=== PATIENT | female | born 1955 | race Caucasian/White ===

== ENCOUNTER 2016-07-31 19:27 | Inpatient (IN) | payer OTHER ==
[~2016-07-31] VITALS: Ht 167.6 cm; Wt 110.3 kg
--- NOTE | 2016-07-31 21:13 | ED NURSING NOTES ---
Clinical Report - Nurses [facility] [address] [place] [address] 07/31/2016 19:30 Patient: MORENA CORDERO TRIAGE Triage time 5. Acuity: LEVEL 3. Chief Complaint: ABDOMINAL PAIN and (pt had gastroenteritis since last (was seen at clinic and given omeprasol) , has off work note til next Wednesday. In c/o rt flank pain). 19:45. --20:12 Sofy Womack R.N. 19:45 07/31/16. BP: 133/62. HR: 95. RR: 18. O2 saturation: 96% on room air. Temp: 99 F. --20:12 Sofy Womack R.N. Weight: 107 kg stated. Height/Length: 66 inches Per Patient. BMI: 38.1. --20:08 Sofy Womack R.N. Medications Omeprazole Oral 20 mg, daily. Vicodin Oral 5 mg, daily. --19:57 Sofy Womack R.N. MetFORMIN HCl Oral 500mg ER -- 2 tabs at HS. --20:10 Sofy Womack R.N. Call [facility] . --20:11 Sofy Womack R.N. Simvastatin Oral 20 mg, daily. --20:11 Sofy Womack R.N. Allergies Shellfish-derived Products. --20:10 Sofy Womack R.N. History Arrived by private vehicle. Historian: patient. Accompanied by friend. Primary physician (justin). This started today. She has had abdominal pain. No nausea, vomiting or diarrhea. PAST MEDICAL HX: Diabetes mellitus. The patient is post-menopausal. SURGERY HX: . SOCIAL HX: Never smoker. Occasional alcohol use. No drug use. --20:12 Sofy Womack R.N. Interventions ID band on patient. To treatment room. --20:12 Sofy Womack R.N. PHYSICAL ASSESSMENT 19:48. Ambulatory to room. Patient gowned. GENERAL / NEURO / PSYCH: Alert. Oriented X 4. Appears in no acute distress. RESPIRATORY: Respirations not labored. CVS: Capillary refill less than 2 seconds. GI / : No nausea noted. No diarrhea. No blood in the stool. SKIN: Skin is warm and dry. --20:00 Sofy Womack R.N. NURSING PROGRESS NOTES 19:48 07/31/16. Patient gowned. Head of bed elevated. Reassurance given. Patient identifiers checked. Call light placed in reach. Side rails up. Bed placed in lowest position. --19:48 Sofy Womack R.N. 19:50. Patient ID band checked for patient name and birthdate: patient confirmed. Clean catch urine collected with return of yellow-colored cloudy urine; sample sent to lab for urinalysis and culture. Specimen labeled in the presence of the patient. --19:59 Sofy Womack R.N. 20:26 07/31/2016 Site #1 started via IV in the right hand with an 20g angiocath; two attempts. Blood drawn: rainbow set. Labeled in the presence of the patient and sent to the lab. Saline lock flushed with 10 mL saline. --20:26 Daylin Ramirez R.N. 20:35. ( Pt declined nausea meds and IV fluids, JOSELYN notified.). --20:46 Sofy Womack R.N. 20:45. ( US at bedside to do exam). --20:47 Sofy Womack R.N. 22:00. ( NAIMAD in talking with pt and daughter at length about need for admission. Pt initially wanted to go home, but eventually agreed to be admitted. NAIMAD asked for admit to be expedited before pt changed her mind again). --22:11 Sofy Womack R.N. 22:10. ( attempted to call report, Fco will call me back when he is available). --22:11 Sofy Womack R.N. 22:35. ( called and gave report to Fco. JOSELYN has also ordered EKG and CXR prior to admission). --22:38 Sofy Womack R.N. 22:49. EKG time: (153). EKG was ordered, performed by a tech and shown to the ED physician. done by KRISTIAN Garnett. --22:56 Sofy Womack R.N. 22:57 07/31/16. Portable chest x-ray ordered, performed and shown to the ED physician. --22:57 Sofy Womack R.N. 23:05 07/31/2016 Site #[address] upon admission; patent. Converted to saline lock. --23:21 Sofy Womack R.N. 23:05 07/31/2016 IV Saline Lock Drip IV Continued: upon admission at the rate of 0 mL/hr (sent bag to floor that I had checked out that pt had refused, so they can start). --23:19 Sofy Womack R.N. DISPOSITION / DISCHARGE Condition at departure: unchanged and stable. ( pt states she is afraid to be here.). Admitted to Acute Care. Transported via stretcher by [facility]. Report was given. (Fco RN on 2nd floor). RADHA COMA SCORE: [place] Coma Scale: 15- eyes open spontaneously (4); best verbal response- oriented x 4 (5); best motor response- obeys commands (6). --22:44 Sofy Womack R.N. 22:30 07/31/16. BP: 140/70. HR: 72. RR: 18. O2 saturation: 95% on room air. Temp: deferred. Pain level now: 0/10. --22:44 Sofy Womack R.N. Departure time: 2304. --23:16 Sofy Womack R.N. Locked/Released at 07/31/2016 23:22 by Sofy Womack R.N.
--- NOTE | 2016-07-31 21:13 | ED ORDER SUMMARY ---
..... Patient: MORENA CORDERO OrderSheet [facility] VisitID: [id number] [place] [address] 60y, F Registration Date/Time: 07/31/2016 ORDER SHEET Weight: 107.0 kg (stated) Allergies: Shellfish-derived Products GENERAL ORDERS: UA-Culture if indicated Urgent (19:55 07/31/2016 PHutchinson DO) (Ack 19:58 IJurca ER Tech1) (20:02 DDean R.N.) US Abdomen Limited (No) Urgent (20:02 07/31/2016 PHutchinson DO) (Ack 20:04 [facility]urca ER Tech1) ([facility] CBC w Diff Urgent (20:03 07/31/2016 PHutchinson DO) (20:03 PHutchinson DO) (Cancelled: Other20:03 PHutchinson DO) (Ack 20:04 IJurca ER Tech1) CMP Urgent (20:03 07/31/2016 PHutchinson DO) (20:03 PHutchinson DO) (Cancelled: Other20:03 PHutchinson DO) (Ack 20:04 IJurca ER Tech1) Amylase Urgent (20:03 07/31/2016 PHutchinson DO) (Ack 20:04 IJurca ER Tech1) (20:38 DDean R.N.) Lipase Urgent (20:03 07/31/2016 PHutchinson DO) (Ack 20:04 IJurca ER Tech1) (20:38 DDean R.N.) PT with INR Urgent (20:03 07/31/2016 PHutchinson DO) (Ack 20:04 IJurca ER Tech1) (20:38 DDean R.N.) NPO (20:03 07/31/2016 PHutchinson DO) (Ack 20:04 IJurca ER Tech1) (20:38 DDean R.N.) Cardiac Panel Stat (20:06 07/31/2016 PHutchinson DO) (Ack 20:08 IJurca ER Tech1) (20:38 DDean R.N.) BNP Urgent (20:06 07/31/2016 [facility]) (Ack 20:08 IJurca ER Tech1) (20:38 DDean R.N.) Chest 1V Urgent (22:31 07/31/2016 [facility]) (Ack 22:33 IJurca ER Tech1) (22:57 DDean R.N.) EKG - ER Stat (22:32 07/31/2016 [facility]) (Ack 22:33 IJurca ER Tech1) (22:57 DDean R.N.) (22:57 CHategekimana) MEDICATION ORDERS: IV FLUIDS: IV NS : initial bolus 500 mL (1000 mL/hr), then 500 mL/hr for X2 (NOW) (20:02 07/31/2016 [facility]) (Ack 20:08 DDean R.N.) (Cancelled: Patient [id number] DDean R.N.) Zofran IV 4 mg (NOW) (20:02 07/31/2016 [facility]) (Ack 20:08 DDean R.N.) (Cancelled: Patient Kfcevzw43:50 DDean R.N.) IV Saline Lock (23:16 07/31/2016 DDean R.N. per protocol) (23:17 DDean R.N.) ORDER SHEET NOTES: [Electronically signed by Jose Luis Juárez DO (22:57 07/31/2016)] [Electronically signed by Sofy Womack R.N. (23:22 07/31/2016)] [Electronically locked/signed by Sofy Womack R.N. (23:22 07/31/2016)]
--- NOTE | 2016-07-31 21:13 | ED ORDER SUMMARY ---
..... Patient: MOERNA CORDERO OrderSheet [facility] VisitID: [id number] [place] [address] 60y, F Registration Date/Time: 07/31/2016 ORDER SHEET Weight: 107.0 kg (stated) Allergies: Shellfish-derived Products GENERAL ORDERS: UA-Culture if indicated Urgent (19:55 07/31/2016 PHutchinson DO) (Ack 19:58 IJurca ER Tech1) (20:02 DDean R.N.) US Abdomen Limited (No) Urgent (20:02 07/31/2016 PHutchinson DO) (Ack 20:04 IJurca ER Tech1) (21:14 [facility] CBC w Diff Urgent (20:03 07/31/2016 PHutchinson DO) (20:03 PHutchinson DO) (Cancelled: Other20:03 PHutchinson DO) (Ack 20:04 IJurca ER Tech1) CMP Urgent (20:03 07/31/2016 PHutchinson DO) (20:03 PHutchinson DO) (Cancelled: Other20:03 PHutchinson DO) (Ack 20:04 [facility] ER Tech1) Amylase Urgent (20:03 07/31/2016 PHutchinson DO) (Ack 20:04 IJurca ER Tech1) (20:38 DDean R.N.) Lipase Urgent (20:03 07/31/2016 PHutchinson DO) (Ack 20:04 IJurca ER Tech1) (20:38 DDean R.N.) PT with INR Urgent (20:03 07/31/2016 PHutchinson DO) (Ack 20:04 IJurca ER Tech1) (20:38 DDean R.N.) NPO (20:03 07/31/2016 PHutchinson DO) (Ack 20:04 IJurca ER Tech1) (20:38 DDean R.N.) Cardiac Panel Stat (20:06 07/31/2016 PHutchinson DO) (Ack 20:08 IJurca ER Tech1) (20:38 DDean R.N.) BNP Urgent (20:06 07/31/2016 [facility]) (Ack 20:08 IJurca ER Tech1) (20:38 DDean R.N.) Chest 1V Urgent (22:31 07/31/2016 [facility]) (Ack 22:33 IJurca ER Tech1) (22:57 DDean R.N.) EKG - ER Stat (22:32 07/31/2016 [facility]) (Ack 22:33 IJurca ER Tech1) (22:57 DDean R.N.) (22:57 CHategekimana) MEDICATION ORDERS: IV FLUIDS: IV NS : initial bolus 500 mL (1000 mL/hr), then 500 mL/hr for X2 (NOW) (20:02 07/31/2016 [facility]) (Ack 20:08 DDean R.N.) (Cancelled: Patient [id number]:50 DDean R.N.) Zofran IV 4 mg (NOW) (20:02 07/31/2016 [facility]) (Ack 20:08 DDean R.N.) (Cancelled: Patient [id number]:50 DDean R.N.) IV Saline Lock (23:16 07/31/2016 DDean R.N. per protocol) (23:17 DDean R.N.) ORDER SHEET NOTES: [Electronically signed by Jose Luis Juárez DO (22:57 07/31/2016)] [Electronically signed by Sofy Womack R.N. (23:22 07/31/2016)] [Electronically locked/signed by Sofy Womack R.N. (23:22 07/31/2016)]
--- NOTE | 2016-07-31 21:13 | ED NURSING NOTES ---
Clinical Report - Nurses [facility] [address] [place] [address] 07/31/2016 19:30 Patient: MORENA CORDERO TRIAGE Triage time 5. Acuity: LEVEL 3. Chief Complaint: ABDOMINAL PAIN and (pt had gastroenteritis since last (was seen at clinic and given omeprasol) , has off work note til next Wednesday. In c/o rt flank pain). 19:45. --20:12 Sofy Womack R.N. 19:45 07/31/16. BP: 133/62. HR: 95. RR: 18. O2 saturation: 96% on room air. Temp: 99 F. --20:12 Sofy Womack R.N. Weight: 107 kg stated. Height/Length: 66 inches Per Patient. BMI: 38.1. --20:08 Sofy Womack R.N. Medications Omeprazole Oral 20 mg, daily. Vicodin Oral 5 mg, daily. --19:57 Sofy Womack R.N. MetFORMIN HCl Oral 500mg ER -- 2 tabs at HS. --20:10 Sofy Womack R.N. Call [facility] . --20:11 Sofy Womack R.N. Simvastatin Oral 20 mg, daily. --20:11 Sofy Womack R.N. Allergies Shellfish-derived Products. --20:10 Sofy Womack R.N. History Arrived by private vehicle. Historian: patient. Accompanied by friend. Primary physician (justin). This started today. She has had abdominal pain. No nausea, vomiting or diarrhea. PAST MEDICAL HX: Diabetes mellitus. The patient is post-menopausal. SURGERY HX: . SOCIAL HX: Never smoker. Occasional alcohol use. No drug use. --20:12 Sofy Womack R.N. Interventions ID band on patient. To treatment room. --20:12 Sofy Womack R.N. PHYSICAL ASSESSMENT 19:48. Ambulatory to room. Patient gowned. GENERAL / NEURO / PSYCH: Alert. Oriented X 4. Appears in no acute distress. RESPIRATORY: Respirations not labored. CVS: Capillary refill less than 2 seconds. GI / : No nausea noted. No diarrhea. No blood in the stool. SKIN: Skin is warm and dry. --20:00 Sofy Womack R.N. NURSING PROGRESS NOTES 19:48 07/31/16. Patient gowned. Head of bed elevated. Reassurance given. Patient identifiers checked. Call light placed in reach. Side rails up. Bed placed in lowest position. --19:48 Sofy Womack R.N. 19:50. Patient ID band checked for patient name and birthdate: patient confirmed. Clean catch urine collected with return of yellow-colored cloudy urine; sample sent to lab for urinalysis and culture. Specimen labeled in the presence of the patient. --19:59 Sofy Womack R.N. 20:26 07/31/2016 Site #1 started via IV in the right hand with an 20g angiocath; two attempts. Blood drawn: rainbow set. Labeled in the presence of the patient and sent to the lab. Saline lock flushed with 10 mL saline. --20:26 Daylin Ramirez R.N. 20:35. ( Pt declined nausea meds and IV fluids, JOSELYN notified.). --20:46 Sofy Womack R.N. 20:45. ( US at bedside to do exam). --20:47 Sofy Womack R.N. 22:00. ( NAIMAD in talking with pt and daughter at length about need for admission. Pt initially wanted to go home, but eventually agreed to be admitted. NAIMAD asked for admit to be expedited before pt changed her mind again). --22:11 Sofy Womack R.N. 22:10. ( attempted to call report, Fco will call me back when he is available). --22:11 Sofy Womack R.N. 22:35. ( called and gave report to Fco. JOSELYN has also ordered EKG and CXR prior to admission). --22:38 Sofy Womack R.N. 22:49. EKG time: (424). EKG was ordered, performed by a tech and shown to the ED physician. done by KRISTIAN Garnett. --22:56 Sofy Womack R.N. 22:57 07/31/16. Portable chest x-ray ordered, performed and shown to the ED physician. --22:57 Sofy Womack R.N. 23:05 07/31/2016 Site #[address] upon admission; patent. Converted to saline lock. --23:21 Sofy Womack R.N. 23:05 07/31/2016 IV Saline Lock Drip IV Continued: upon admission at the rate of 0 mL/hr (sent bag to floor that I had checked out that pt had refused, so they can start). --23:19 Sofy Womack R.N. DISPOSITION / DISCHARGE Condition at departure: unchanged and stable. ( pt states she is afraid to be here.). Admitted to Acute Care. Transported via stretcher by [employer]. Report was given. (Fco RN on 2nd floor). RADHA COMA SCORE: [place] Coma Scale: 15- eyes open spontaneously (4); best verbal response- oriented x 4 (5); best motor response- obeys commands (6). --22:44 Sofy Womack R.N. 22:30 07/31/16. BP: 140/70. HR: 72. RR: 18. O2 saturation: 95% on room air. Temp: deferred. Pain level now: 0/10. --22:44 Sofy Womack R.N. Departure time: 2304. --23:16 Sofy Womack R.N. Locked/Released at 07/31/2016 23:22 by Sofy Womack R.N.
--- NOTE | 2016-07-31 21:13 | ED CLINICAL REPORT ---
Clinical Report - Physicians/Mid Levels [facility] [address] [place] [address] 07/31/2016 19:30 Patient: MORENA CORDERO Time Seen: 19:55. Arrived- By private vehicle. Historian- patient. HISTORY OF PRESENT ILLNESS Chief Complaint: FLANK PAIN. At its maximum, severity described as moderate. When seen in the E.D., severity described as mild. Modifying factors- worsened by movement. Relieved by rest. It is described as "pain", sharp and stabbing. No radiation. It is described as located in the right flank and the right upper quadrant, right abdomen, right lower quadrant and epigastric area. This started several days ago, worse today and is still present. It was gradual in onset and has been waxing/waning. The patient has had nausea. She has had vomiting (several days ago). She has had diarrhea (several days ago). Similar symptoms previously: Recent medical care: The patient was seen recently at another facility in a clinic. Seen for similar symptoms. Evaluation/treatment: labs. Diagnosis: gastritis. REVIEW OF SYSTEMS The patient is post-menopausal. No constipation, black stools, hematemesis, difficulty with urination or pain with urination. No urinary frequency, bloody stools, fever, headache or sore throat. No chest pain, difficulty breathing, cough, joint pain or skin rash. Denies current . The patient has had back pain. All systems otherwise negative, except as recorded above. PAST HISTORY See nurses notes. PCP: Sandra. Diabetes mellitus. Hyperlipidemia. Gastroesophageal reflux. Surgeries: . Medications: Simvastatin Oral 20 mg, daily. Call rahel [facility] . MetFORMIN HCl Oral 500mg ER -- 2 tabs at HS. Omeprazole Oral 20 mg, daily. Vicodin Oral 5 mg, daily. Allergies: Shellfish-derived Products. SOCIAL HISTORY Never smoker. Occasional alcohol use. No drug use. Is a local resident. ADDITIONAL NOTES The nursing notes have been reviewed. PHYSICAL EXAM Vital Signs: 07/31/2016 19:45 BP: 133/62. HR: 95. RR: 18. O2 saturation: 96%. Temp: 99 F. Appearance: Alert. Oriented X3. Anxious. Patient in mild distress. Eyes: Pupils equal, round and reactive to light. Eyes normal inspection. No scleral icterus or pale conjunctivae. ENT: Pharynx normal. No pharyngeal erythema or tonsillar exudate. The mucous membranes are not dry. Neck: Normal inspection. Neck supple. CVS: Normal heart rate and rhythm. Heart sounds normal. Pulses normal. Respiratory: No respiratory distress. Breath sounds normal. Abdomen: Soft. Moderate tenderness in the upper abdomen, right upper quadrant and epigastric area. Positive Butler's sign. Guarding present. No mass. Obese. No rebound tenderness. Back: Normal inspection. Skin: Skin warm and dry. Normal skin color. Normal skin turgor. Extremities: Extremities exhibit normal ROM. No calf tenderness. No lower extremity edema. Neuro: Oriented X 3. No motor deficit. LABS, X-RAYS, AND EKG EKG: EKG time: (22:49). Normal sinus rhythm. Normal P waves. Normal MIGDALIA. Non-specific ST segment / T wave abnormalities. The study has been interpreted contemporaneously by me. The EKG appears to be a good tracing. Chest X-ray: No acute disease. Views: AP (portable). Technique: good, poor inspiration. The X-rays were interpreted contemporaneously by me. Laboratory Tests: UA-Culture if indicated: (ROSA: 07/31/2016 19:50) ( MsgRcvd 07/31/2016 20:28) Final results Test Result Flag Units (Reference) URINE COLOR YELLOW URINE APPEARANCE CLEAR URINE GLUCOSE NEGATIVE (NEGATIVE) URINE BILIRUBIN NEGATIVE (NEGATIVE) URINE KETONE NEGATIVE (NEGATIVE) URINE SPECIFIC GRAVITY >= 1.030 (1.010-1.030) URINE PH 5.5 (5.0-8.0) URINE PROTEIN NEGATIVE (NEGATIVE) URINE UROBILINOGEN 0.2 EU/dL (0.2-1.0) URINE NITRITE NEGATIVE (NEGATIVE) URINE BLOOD NEGATIVE (NEGATIVE) URINE LEUK ESTERASE NEGATIVE (NEGATIVE) URINE RBC NONE SEEN rbc/hpf (0-1) URINE WBC 1-3 wbc/hpf (0-1) URINE EPITHELIAL CELLS 3-5 EPI/hpf (0-5) URINE BACTERIA FEW (1+) (NONE SEEN) URINE COMMENT CULT NOT INDICATED 2+ MUCUS2 m.l. patient sample submittedURINE CULTURES ARE SET-UP BASED ON THE FOLLOWING CRITERIA:POSITIVE NITRITEPOSITIVE LEUKOCYTE ESTERASEGREATER THAN 10 WHITE BLOOD CELLSMODERATE (2+) OR GREATER BACTERIA CBC w Diff: (ROSA: 07/31/2016 20:25) ( [facility] 07/31/2016 20:48) Final results Test Result Flag Units (Reference) WHITE BLOOD COUNT 10.7 K/uL (4.5-11.5) RED BLOOD COUNT 4.09 M/uL (4.00-5.20) HEMOGLOBIN 11.6 L gm/dL (12.0-16.0) HEMATOCRIT 35.7 L % (36.0-46.0) MEAN CELL VOLUME 87 fL (80-100) MEAN CORPUSCULAR HGB 28 pg (26-34) MEAN CORPUSCULAR HGB CONC 33 g/dL (31-37) RED CELL DISTRIBUTION WIDTH 14.1 % (11.6-14.8) PLATELET COUNT 350 K/uL (150-400) NEUTROPHIL % 54.2 % (50-75) LYMPH % 34.0 % (25-40) MONO % 7.1 % (3-14) EOSINOPHIL % 4.3 H % (0-4) BASOPHIL % 0.4 % (0-2) PT with INR: (ROSA: 07/31/2016 20:25) ( [facility] 07/31/2016 21:02) Final results Test Result Flag Units (Reference) INR 0.9 (0.8-1.2) Low Intensity Therapy: INR 1.5-2.0 PT range 18.5-23.1Mod.Intensity Therapy: INR 2.0-3.0 PT range 23.1-31.5High Intensity Therapy: INR 2.5-3.5 PT range 27.4-35.5High Intensity Therapy 2: INR 3.0-4.0 PT range 31.5-39.3 BNP: (ROSA: 07/31/2016 20:25) ( [facility] 07/31/2016 21:16) Final results Test Result Flag Units (Reference) B-TYPE NATRIURETIC PEPTIDE 24.4 pg/ml (5-100) CHEM 13 PANEL: (ROSA: 07/31/2016 20:25) ( MsgRcvd 07/31/2016 22:44) Final results Test Result Flag Units (Reference) GLUCOSE 147 H mg/dL (70-110) BUN 12 mg/dL (7-18) CREATININE 0.8 mg/dL (0.6-1.3) Estimated GFR >60 mL/min Estimated GFR- >60 mL/min Note: Persistent reduction over 3 months in eGFR<60 mL/min/1.73 m2 defines CKD. Patients with eGFR values>=60 mL/min/1.73 m2 may also have CKD if evidence ofpersistent proteinuria. Additional information may be foundat www.kidney.org. SODIUM 140 mmol/L (136-145) POTASSIUM 3.8 mmol/L (3.5-5.1) CHLORIDE 100 mmol/L (98-107) CARBON DIOXIDE 30 mmol/L (21-32) CALCIUM 9.7 mg/dL (8.5-10.1) TOTAL PROTEIN 8.1 g/dL (6.4-8.2) ALBUMIN 3.3 g/dL (3.3-5.0) BILIRUBIN, TOTAL 0.4 mg/dL (0.0-1.0) ALKALINE PHOSPHATASE 74 U/L (46-116) AST (SGOT) 9 L U/L (15-37) ALT (SGPT) 12 U/L (12-78) MAGNESIUM 1.8 mg/dL (1.8-2.4) CPK 58 U/L (24-260) TROPONIN I <0.05 L ng/mL (0.00-1.5) TROPONIN REFERENCE RANGE:<0.1 NEGATIVE0.1-1.5 INDETERMINANT>1.5 POSITIVE LIPASE 80 U/L (73-393) AMYLASE 25 U/L (25-115) . Pulse Oximetry: 07/31/2016 19:45 O2 saturation: 96%. (FIO2 - room air). Interpretation: normal. PROGRESS AND PROCEDURES Course of Care: Patient is stable. Physical exam findings are improved. Symptoms better. Pt declined IV fluid, antiemetics or pain medications. States only has pain when she takes a deep breath or coughs or moves, but is comfortable at rest and does not want any meds. Discussed case with on-call health care provider, (Ankur). Reviewed test results. Agreed upon decision. Health care provider will see patient in hospital. Discussed case with hospitalist, (Mara). Patient/family counseled. Transition orders written. Disposition: Admitted to Acute Care. Condition: stable and improved. CLINICAL IMPRESSION Biliary colic with a single gallstone. No cholecystitis. (Electronically signed by Joes Luis Juárez DO 07/31/2016 22:57)
--- NOTE | 2016-07-31 23:22 | ED MED RECONCILIATION SUMMARY ---
Patient: MORENA CORDERO Medication Reconciliation Report [facility] VisitID: [id number] [address] [place] [address] 60y, F Registration Date/Time: 07/31/2016 Weight: 107.0 kg Height/Length: 66 in. BMI: 38.1 ALLERGIES: Shellfish-derived Products The patient's Home Medications are listed below: THE FOLLOWING MEDICATIONS NEED TO BE RECONCILED: [facility] -- 2 tabs at HS Omeprazole Oral 20 mg, daily Simvastatin Oral 20 mg, daily Vicodin Oral 5 mg, daily The source(s) of the original Home Medication information: Not obtained. The following Medications were given to the patient in the Emergency Department: None. The following Medications were prescribed to the patient: None.
--- NOTE | 2016-07-31 23:22 | ED MAR SUMMARY ---
..... Medication Administration Record [place] [address] [place], [place] [phone] Patient: MORENA CORDERO Visit ID: [id number] 60y, F Weight: 107.0 kg Height/Length: 66 in BMI: 38.1 ALLERGIES: Shellfish-derived Products
--- NOTE | 2016-07-31 23:22 | ED DISCHARGE INSTRUCTIONS ---
Patient: MORENA CORDERO General Instructions [facility] VisitID: [id number] [address] [place] [address] 60y, F Registration Date/Time: 07/31/2016 Biliary colic with a single gallstone. No cholecystitis. (Electronically signed by Jose Luis Juárez DO 07/31/2016 22:57)
--- NOTE | 2016-07-31 23:22 | ED DISCHARGE INSTRUCTIONS ---
Patient: MORENA CORDERO General Instructions [facility] VisitID: [id number] [address] [place] [address] 60y, F Registration Date/Time: 07/31/2016 Biliary colic with a single gallstone. No cholecystitis. (Electronically signed by Jose Luis Juárez DO 07/31/2016 22:57)
--- NOTE | 2016-07-31 23:22 | ED MAR SUMMARY ---
..... Medication Administration Record [place] [address] [place], [place] [phone] Patient: MORENA CORDERO Visit ID: [id number] 60y, F Weight: 107.0 kg Height/Length: 66 in BMI: 38.1 ALLERGIES: Shellfish-derived Products
--- NOTE | 2016-07-31 23:22 | ED MED RECONCILIATION SUMMARY ---
Patient: MORENA CORDERO Medication Reconciliation Report [facility] VisitID: [id number] [address] [place] [address] 60y, F Registration Date/Time: 07/31/2016 Weight: 107.0 kg Height/Length: 66 in. BMI: 38.1 ALLERGIES: Shellfish-derived Products The patient's Home Medications are listed below: THE FOLLOWING MEDICATIONS NEED TO BE RECONCILED: [facility] Oral 500mg ER -- 2 tabs at HS Omeprazole Oral 20 mg, daily Simvastatin Oral 20 mg, daily Vicodin Oral 5 mg, daily The source(s) of the original Home Medication information: Not obtained. The following Medications were given to the patient in the Emergency Department: None. The following Medications were prescribed to the patient: None.
[2016-07-31 23:27] VITALS: BP 146/72
[2016-08-01] VITALS (10 sets, daily range): BP systolic 138–170; BP diastolic 70–87
--- NOTE | 2016-08-01 | NUR ---
Patient was admitted with right sided abdominal pain. She was previously seen ath the clinic last Wednesday for gastroenteritis where she was apparently started on Omeprasole. She is currently NPO in preparation for her gallbladder operation at 0930.
--- NOTE | 2016-08-01 00:23 | DIAGNOSTIC IMAGING REPORT ---
PROCEDURE: US ABDOMEN ULTRASOUND-LIMITED INDICATION: RUQ PAIN TECHNIQUE: Rivera scale and color Doppler sonographic images were obtained of the right upper quadrant. COMPARISON: None. FINDINGS: The liver is increased in size measuring 21.4 cm and mild to moderately diffusely hyperechoic in parenchymal echo texture. The margin is fairly smooth. No mass or biliary dilatation. There is a 1.8 cm shadowing calculus. The neck of the gallbladder. The gallbladder wall adjacent to the neck is moderately thickened and 5.4 mm. Gallbladder wall in the fundus is normal at 1.8 mm. There is also sludge within the gallbladder fundus. Questionable pericholecystic fluid. No definite Butler's sign per the technologist. Extrahepatic common duct is 4.7 mm. The visible portion of the inferior vena cava, abdominal aorta, and portal vein appear normal with appropriate direction of flow in the portal vein. The right kidney is normal measuring 11.6 cm. No free fluid in the right upper quadrant. IMPRESSION: 1. Cholelithiasis and findings suspicious for acute cholecystitis. 2. Hepatic steatosis. 3. Preliminary findings conveyed by the technologist to the emergency room provider.
[2016-08-01] MEDS ORDERED: METFORMIN HCL500 MG PO (00:28)
[2016-08-01] MEDS ORDERED: OMEPRAZOLE20 M1 PO (00:30)
[2016-08-01] MEDS ORDERED: SIMVASTATIN20 MG PO (00:31)
[2016-08-01] MEDS ORDERED: VICODIN EQUIVAL1 TAB PO (00:32)
--- NOTE | 2016-08-01 00:36 | DIAGNOSTIC IMAGING REPORT ---
PROCEDURE: XR CHEST 1 VIEW INDICATION: Preop for cholecystectomy. TECHNIQUE: Single view chest. 2300 hours COMPARISON: None FINDINGS: Cardiomediastinal contour and central vessels are normal. Low lung volumes. Bibasilar atelectasis. Upper lung zones are clear. No significant effusion or pneumothorax. Minor degenerative changes of the osseous structures. IMPRESSION: 1. Given low lung volumes, no acute cardiopulmonary disease.
--- NOTE | 2016-08-01 08:49 | CONSULTATION REPORT ---
DATE OF CONSULTATION: 08/01/2016 CHIEF COMPLAINT: 1. Abdominal pain HISTORY OF PRESENT ILLNESS: A 60-year-old female who approximately 1 week ago, thought she had the intestinal flu. After about 2 days, she saw her family physician who examined her, arleen some labs and started her on some medications. Her family physician is located in the [facility] in [place]. However, the pain persisted, worsening the day of admission, which she complained of a severe stabbing pain, right upper quadrant, radiating into her upper back. The patient states that all week long she has had fever and chills. Her highest temperature was 99+. Earlier in the week, she had nausea and vomiting. Denies any zoila-colored stool or dark urine. No prior history of abdominal symptoms. She was evaluated in the emergency department and noted to have a white count of 10.7, hemoglobin and hematocrit 11.6 and 35.7 respectively. Ultrasound of gallbladder showed a 1.8 cm stone impacted in the neck of gallbladder, thickened gallbladder wall, questionable pericholecystic fluid and steatosis of the liver. MEDICAL/SURGICAL HISTORY: , dilatation and curettage, wisdom teeth extraction, left eye surgery. MEDICATIONS: 1. Metformin 1000 mg daily. 2. Simvastatin 20 mg daily. 3. A blood pressure medication which she takes 20 mg daily that she cannot remember the name. ALLERGIES: 1. SHELLFISH. SOCIAL HISTORY: The patient is , 1 son, 3 daughters alive and well. The patient does not smoke, rarely drinks alcohol. Does not use recreational drugs. 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 FAMILY HISTORY: Mother age 62 of myocardial infarction. Father , age 82, myocardial infarction. Three brothers, 2 , one from lung cancer, one from alcohol-related problems and had a history of hemophilia. Three sisters alive and well. REVIEW OF SYSTEMS: G5, P4, AB1. Menarche age 14, last menstrual period approximately 14 years ago. Last Pap smear 1 year ago. Last mammogram 1 year ago. The patient has never had a colonoscopy. No history of hepatitis, jaundice, rheumatic fever, blood transfusion, heart murmurs requiring antibiotics or bleeding tendencies. The patient states she has lost 35 pounds by dieting. PHYSICAL EXAMINATION: GENERAL: The patient does not appear to be in any acute distress. She is anxious. VITAL SIGNS: Blood pressure is 152/85, pulse 64, respirations 18, temperature 98.1. GENERAL: The patient is awake, alert, conversant. HEENT: Normocephalic, atraumatic. Pupils equal and reactive. No scleral icterus. External auditory canals clear. No nasal septal defect or discharge. Throat is clear. Moist mucous membranes. NECK: Supple. No JVD, carotid bruit or adenopathy. LUNGS: Clear. No rales, rhonchi, or wheezing. O2 saturation is 95%. HEART: Regular rhythm. No murmurs. ABDOMEN: Nondistended with normoactive bowel sounds. Tender right upper quadrant to palpation. No masses appreciable. EXTREMITIES: Full range of motion. No pretibial or ankle edema, 4+ popliteal pulses bilaterally. SKIN: Warm and dry with no peripheral cyanosis. NEUROLOGIC: The patient is grossly intact. No focal motor neurological deficits. LYMPHATICS: No cervical, supraclavicular, axillary, or groin adenopathy. LAB/IMAGING: White count 10.7, hemoglobin and hematocrit 11.6 and 35.7 respectively. Electrolytes within normal limits. Glucose 147, BUN 12, creatinine 0.8, total bilirubin 0.4, alkaline phosphatase 74, lipase 80. IMPRESSION: 1. Subacute cholecystitis, cholelithiasis, probable hydrops of the gallbladder. PLAN: Laparoscopic cholecystectomy. The procedure has been explained to the patient including potential risks but not exclusive of, infection, bleeding, conversion to open procedure, transfusion, damage to major ductal structures requiring rerouting of small intestine to the liver, damage to the small bowel, large bowel, or stomach, retained stone, bile leak, just to mention a few. The patient understands and agrees to proceed. All questions answered to her satisfaction. We have scheduled her for urgent surgery.
--- NOTE | 2016-08-01 09:45 | NUR ---
PT TAKEN TO THE OR FOR LAP MERLINE
--- NOTE | 2016-08-01 10:41 | NUR ---
0945-- PT TX TO POH ON JAVIER, HAD JUST VOIDED, PT VERY NERVOUS ABOUT THE PROCEDURE, CONFIRMS NAME, BD AND PROCEDURE, ALLERGY TO SHELLFISH AND GOT A RASH WITH A PRIOR SURGICAL PREP SO WILL USE CHLORAPREP INCREASED PREOP ANTIBIOTIC TO 2 GRAMS.
--- NOTE | 2016-08-01 13:52 | DIAGNOSTIC IMAGING REPORT ---
PROCEDURE: XR INTRAOPERATIVE LAP MERLINE INDICATION: Intraoperative cholangiogram TECHNIQUE: No images saved. COMPARISON: None. FINDINGS: No images saved. IMPRESSION: 1. No images saved.
--- NOTE | 2016-08-01 13:52 | DIAGNOSTIC IMAGING REPORT ---
PROCEDURE: XR INTRAOPERATIVE LAP MERLINE INDICATION: Intraoperative cholangiogram TECHNIQUE: No images saved. COMPARISON: None. FINDINGS: No images saved. IMPRESSION: 1. No images saved.
--- NOTE | 2016-08-01 14:14 | NUR ---
PT EXTUBATED IN OR, TX ON BED TO PACU, REPORT TO MALIK HENDERSON PLACED AT THE END OF THE CASE AND SUCURED/
--- NOTE | 2016-08-01 14:18 | NUR ---
ARRIVED TO UNIT, AROUSABLE, DENIES DISCOMFORT AT THIS TIME, NASAL TRUMPET PRESENT, O2/FACE TENT, ENCOURAGED TO USE FOLDED BLANKET SPLINT TO COUGH AND DEEP BREATH, ORAL SUCTIONING FOR SECRETIONS UTILIZED
--- NOTE | 2016-08-01 15:28 | OPERATIVE REPORT ---
DATE OF SURGERY: 08/01/2016 SURGEON: Zaheer Pascual III, MD REAL ESTATE AGENT/BROKER: None. PREOPERATIVE DIAGNOSIS: 1. Acute cholecystitis, cholelithiasis, probable hydrops of gallbladder POSTOPERATIVE DIAGNOSES: 1. Acute cholecystitis, cholelithiasis, empyema of the gallbladder, duodenal perforation PROCEDURE PERFORMED: 1. Upper gastrointestinal endoscopy with percutaneous endoscopic gastrostomy tube placement ANESTHESIA: General endotracheal. ESTIMATED BLOOD LOSS: 200 mL. FLUIDS: Approximately 2000 mL of lactated Ringers. PATHOLOGIC SPECIMEN: Portion of the gallbladder and gallstone. DRAINS: Two 10 mm Byron-Yates drains, Loya catheter and PEG tube. COMPLICATIONS: Perforation suspected duodenum. INDICATIONS: A 60-year-old female with 1 week history of what was thought to be intestinal flu. Two days after the symptoms began, she saw her family physician who arleen some labs and started her on some medication. The pain persisted and worsened the day of admission. She complained of severe stabbing pain in the right upper quadrant radiating into her back. Denies any zoila-colored stool or dark urine. In the emergency department, her white count was 10.7, hemoglobin and hematocrit 11.6 and 35.7 respectively. Ultrasound of her gallbladder showed a 1.8 cm stone impacted in the neck of gallbladder, thickened gallbladder wall, questionable pericholecystic fluid and steatosis of the liver. SURGICAL FINDINGS: The patient was noted to have omentum firmly adherent to the gallbladder. No discernible planes between the omentum and the gallbladder. No discernible planes between the hilar structures and the gallbladder. Apparent adherence of the duodenum to the gallbladder with duodenal perforation. The patient had a very thickened walled gallbladder firmly adherent to the back wall of the gallbladder. No attempt at intraoperative cholangiogram performed. Upper gastrointestinal endoscopy with no gross evidence post-mucosal repair of leak, PEG tube in distal stomach in good position. SURGICAL TECHNIQUE: The patient was brought to the operating room and placed in the dorsal supine position where she underwent general endotracheal anesthesia by the anesthesiology department. The patient's abdomen was prepped using ChloraPrep and draped in a sterile fashion. An infraumbilical incision made, carried down through skin and subcutaneous tissue. A Veress needle was inserted through this site into the abdominal cavity and after ascertaining its appropriate position with suction irrigation, a pneumoperitoneum obtained using CO2 insufflation to approximately 14-15 mmHg pressure. Once this pressure was reached, the Veress needle was removed and replaced with a 10 mm trocar. The trocar removed leaving the sleeve behind, through which a laparoscopic video camera was introduced into the abdominal cavity. Under direct visualization, a separate 10 mm trocar was placed in the subxiphoid region, two 5 mm trocars were placed in the right upper quadrant approximately 4-5 fingerbreadths below the costal margin. Each entered the abdominal cavity under direct visualization. The trocars were removed leaving the sleeves behind, through which laparoscopic instrumentation was introduced into the abdominal cavity. The aforementioned findings noted. It was very, very difficult to dissect the omentum off the right lobe of the liver and the gallbladder. Carefully, we were able to hydrodissect as much as possible and bluntly peel off adherent omentum to the gallbladder. The gallbladder was not particularly visible during the dissection. In the process of peeling off the thickened omentum off the gallbladder, we were able to identify pooching of mucosa suspected to have been duodenal in nature adherent to the gallbladder. This was repaired using interrupted 0 Surgidac [id number] suture using the EndoStitch with extracorporeal knot-tying technique. This was quite tedious and laborsome secondary to the exposure. Once completed, our attention was then turned to what was thought to be the gallbladder. The gallbladder during its manipulation was punctured and noted to contain purulent mucus within its lumen. Attempt at dissection was very, very difficult and rather than injure the hilum of the portal structures, it was decided to open the anterior wall of the gallbladder. The gallbladder wall was quite thickened, opened and a large stone impacted in the neck of gallbladder was removed. Very carefully, we incised the anterior wall of gallbladder and took it down from its liver bed as much as possible using a combination of hydrodissection and electrocautery, again being careful to avoid damage or injury to the portal triad. Dissected down as far as possible. The mucosa at this point was destroyed using electrocautery. No attempt was made at intraoperative cholangiogram because of the fibrotic nature of the distal gallbladder. At this point, it was decided to leave a Byron-Yates drain in the area of the gallbladder bed and its remnant brought out through the most inferior trocar site in the right lower quadrant secured using 3-0 nylon. A 10 mm Byron-Yates drain was placed over our suspected duodenal repair and brought out through the most superior right upper quadrant trocar site, secured using 3-0 nylon. At this point, I performed an upper gastrointestinal endoscopy on the patient passing a fiberoptic video flexible upper GI endoscope, Olympus fiberoptic endoscope down the patient's posterior pharynx. The esophagus intubated, the stomach lumen was visualized. Very carefully, the scope was passed into the duodenum. We were able to identify bile. However, we were not able to identify suture, although we were able to see the light transilluminating the duodenum. Duodenum was insufflated with air. The suspected duodenal suture line was emersed under normal saline. No bubbles were identified. The duodenum was then decompressed. The scope was withdrawn into the gastric lumen where a site was selected on the anterior surface, infiltrated using local anesthetic in the abdominal wall. A catheter needle was introduced through the anterior abdominal wall into the lumen of the stomach. The needle removed, leaving the catheter behind, through which a wire was passed and this was grasped using a snare biopsy loop and retrieved out the patient's mouth, along with the fiberoptic scope. The Silastic PEG tube was then attached to the wire and the wire was then pulled from the anterior abdominal wall, bringing the PEG tube out the anterior abdominal wall, securing it using its bolster. An upper gastrointestinal fluoroscopic endoscope was passed once again down the patient's posterior pharynx into the gastric lumen to check for correct placement of PEG. Once it was noted to be in appropriate position, the stomach was decompressed. The scope withdrawn. The PEG tube was then secured to the anterior abdominal wall using its bolster, bacitracin ointment and sponges. All trocars were removed from the abdominal cavity, the pneumoperitoneum having been released prior. All trocar sites were then approximated using interrupted 4-0 subdermal Polysorb and Steri-Strips. A sterile occlusive dressing was placed over each site. The patient tolerated the procedure well, extubated and transferred to the recovery room in stable condition.
--- NOTE | 2016-08-01 15:30 | NUR ---
PT RETURNED FROM SURGERY. SHE IS SEDATED BUT ROUSABLE TO VOICE. SHE HAS TWO TAB DRAINS, A PEG TUBE, AND A HENDERSON CATH IN PLACE. SHE IS BEING PLACED ON END TIDAL CO2 FOR 8 HOURS PER THE ULTIMATE HOOPS SCOREBOARD OPERATOR. A PICC LINE HAS BEEN ORDERED AND WILL BE PLACED SOMETIME THIS AFTERNOON. SHE WILL START TPN TOMORROW PER THE PHARMACY. LR AND D10 CURRENTLY RUNNING IN HER IV UNTIL TPN BEGINS. FAMILY IS AT THE BEDSIDE, WILL CONTINUE TO MONITOR.
--- NOTE | 2016-08-01 15:32 | NUR ---
PAIN LEVEL DIMINISHED AT TIME OF TRANSFER TO FLOOR, FROM 7-8/10 TO 6/10, REMINDED TO DEEP BREATH, SEDATE WITH NARCOTICS, EASILY AROUSED, CONTINUED TO RECEIVE . ABDOMINAL DRESSINGS CLEAN AND DRY, URINE OUTPUT APPROXIMATELY 100+ CC/HR, TAB DRAINAGE SEROUS RED. MENTATION CLEARING
--- NOTE | 2016-08-01 18:46 | DIAGNOSTIC IMAGING REPORT ---
PROCEDURE: XR CHEST 1 VIEW INDICATION: PICC PLACEMENT TECHNIQUE: Portable AP view 06:26 p.m. COMPARISON: Chest x-ray 07/31/2016 FINDINGS: Interval placement of a right PICC line with the tip at the junction of the SVC and right atrium. Poor inspiration with mild right basilar atelectasis. New left perihilar in the retrocardiac infiltrate. Heart and mediastinum are normal. Thorax is normal. IMPRESSION: 1. Right PICC line in satisfactory position 2. New left perihilar in the retrocardiac infiltrate 3. Results called to the floor.
--- NOTE | 2016-08-01 18:54 | NUR ---
PICC PLACED IN RUE AND PLACEMENT CONFIRMED
--- NOTE | 2016-08-01 22:00 | NUR ---
Patient initially sat out by the bedside and was briefed about lizet's course of mobilising her around the flores every 2 hrs. She was also coached how to use the IS. Staff reassured her that she could have pain meds if need be. Both TAB drains yielding small amounts of sanguinous drainage. PEG tube still not draining anything despite being on intermittent suction.
[2016-08-02 02:30] VITALS: BP 180/90
[2016-08-02 05:45] VITALS: BP 138/64
[2016-08-02 10:29] VITALS: BP 123/66
[2016-08-02 14:43] VITALS: BP 158/81
--- NOTE | 2016-08-02 15:15 | NUR ---
Pharmacy To Dose TPN Dx-duodenal perforation/cholelithiasis Labs- Scr 0.8 CrCl >60 ml/min Mg 1.6 Phos 3.0 Albumin 2.7 Wt 108 kg Estimated Total Kcal (20 KCAL/KG) 2160 delia Estimated Protein Need (1.5 gm/kg) 162 GM = 648 delia Estimated Dextrose need = 312 GM =1062 delia Estimate Fat Need 20% in 250 GM = 50 GM = 450 delia A/P- Will give Clinimix E 5/15 at 75 ml/hr. Will run at 40 ml/hr x 1 hrs then full rate thereafter. Pharmacy will cont to follow. C12 plus Phos and Mag ordered with AM labs.
[2016-08-02 16:59] VITALS: BP 152/67
[2016-08-02 23:45] VITALS: BP 151/66
[2016-08-03 03:45] VITALS: BP 151/74
--- NOTE | 2016-08-03 05:13 | NUR ---
PT SLEPT WELL BETWEEN CARE. TAB DRAINS REMAIN PATENT WITH SMALL ABOUNT OF WATERY REDDISH DRAINAGE. DRESSING AROUND TAB DRAINS SATURATED AND LEAKING SO DRESSING CHANGED AT 0330. PT MEDICATED FOR PAIN OF 7-8/10, ESPECIALLY JUST BEFORE GETTING UP TO USE THE BATHROOM. PT AMBULATED AROUND UNIT SEVERAL TIMES DURING THE SHIFT. VSS AND NO COMPLAINTS OF NAUSEA. ON 2L O2. PEG TUBE HOOKED UP TO INTERMITTENT SUCTION. PT SAT UP IN CHAIR AT BEGINNING AND END OF SHIFT.
[2016-08-03 07:01] VITALS: BP 135/56
--- NOTE | 2016-08-03 09:00 | NUR ---
PT IS PASSING GAS. DR HERNANDEZ NOTIFIED.
[2016-08-03 10:27] VITALS: BP 136/60
[2016-08-03 14:57] VITALS: BP 143/68
[2016-08-03 18:10] VITALS: BP 154/72
[2016-08-03 22:40] VITALS: BP 147/80
[2016-08-04 02:32] VITALS: BP 153/83
[2016-08-04 07:07] VITALS: BP 141/60
--- NOTE | 2016-08-04 08:46 | NUR ---
NUTRITION ASSESSMENT/TPN: Pt admitted with dx/o cholelithiasis and s/p laparascopic carlos and duodenal perf. Pt started on TPN 08/02. Pt conintues NPO at this time. PMH includes diabetes, HTN, also takes simivistatin for cholesterol? Diet Rx: NPO NKFA TPN orders: D15/AA5 at 75 mls per hour with daily lipids 250 mls 20% Est Kcals: ~5304-9586 kcals per day Est Pro: ~80-110 g per day Est Fluids: ~2.0-2.4 L per day Ht: 66" Wt: 111 kg BMI: 39 IBW: 63-72 kg %IBW: 161% ABW: ~80 kg Meds Incl: insulin, reglan, MVIs in TPN, protonix, see eMar for complete list Labs: Rev'd. Prealbumin Pending, LYTES appear wnl Skin: Willi Score 19, surgical inc sites, 2 TAB drains. Accuchecks: 187-245 A: Pt currently on TPN day 3, it appears that current formula is meeting estimated nutritional needs. Pt blood sugars rev'd, insulin in place for coverage, D15% appears appropriate given diabetes hx and accucheck values (above) vs D20%. Per 08/03 nsg notes pt passing gas, will continue to monitor oral nutrition progress and follow up prn/protocol. O: 1. Continue current TPN as appears to be meeting est needs 2. Advance diet when medically appropriate.
--- NOTE | 2016-08-04 10:27 | NUR ---
Dressings to KARSON drains saturated with yellow / serous sanguinous drainage, changed dressings. patient tolerated well. karson sites now c/d/i, no s/sxs of infection, skin intact. wctm
[2016-08-04 10:29] VITALS: BP 148/73
--- NOTE | 2016-08-04 14:55 | NUR ---
NOTIFIED DR. HERNANDEZ OF ELEVATED BP AND 99.3 TEMP. PER MD NO NEW ORDERS AT THIS TIME
[2016-08-04 14:57] VITALS: BP 167/78
--- NOTE | 2016-08-04 15:50 | NUR ---
Pt sitting in chair, pain 8/10 in abd. Meperidine given for pain. All dressings cdi. Pt ambulates in hallway well. All fluids running and Peg tube patent. Residual check in PEG tube was 12ml. No sob, nausea. Lungs are clear but diminished. WCTM.
[2016-08-04 18:37] VITALS: BP 158/85
[2016-08-04 22:59] VITALS: BP 163/86
[2016-08-05] VITALS (9 sets, daily range): BP systolic 132–178; BP diastolic 63–93
--- NOTE | 2016-08-05 02:00 | NUR ---
Pt is resting in bed at this time. Alert, oriented, cooperative with care. The two TAB drains are both draining very small amount of sanguinous drainage. Stripping tubing q 2 hours. PEG tube patent and hooked to LIWS per order, green drainage noted. Pt. experiences pain while up to ambulate, but ok while lying down. Declined pain medication at this time. TPN and IV fluids infusing without issues. Call light within reach. WCTM.
--- NOTE | 2016-08-05 06:20 | NUR ---
dressings to both TAB drains soiled with serosanguinous drainage. Changed both dressings. C/D/I. PEG tube dressing C/D/I.
--- NOTE | 2016-08-05 09:03 | NUR ---
NUTRITION FOLLOW UP NOTE: Clarification to allergies, pt has allergy to shell fish wich was noted on admission, please disregard by "NKFA" kitchen has been aware since admission per report. TPN continues this am, no diet orders noted as of yet. Pt Accuchecks rev'd, 174-209 this morning and yesterday, low dose SSI in place, suggest review insulin regimen? may want to increase to med dose SSI. RD to continue to monitor closely.
--- NOTE | 2016-08-05 13:55 | NUR ---
PATIENT AMBULATING FREQUENTLY ORDERED, STATES THAT SHE HAS VERY MILD PAIN BUT IS REFUSING PAIN MEDICATION AT THIS TIME
[2016-08-06 04:20] VITALS: BP 162/72
--- NOTE | 2016-08-06 05:07 | NUR ---
To imaging for abdominal xray. Tranported via WC.
--- NOTE | 2016-08-06 06:13 | NUR ---
Returned from abdominal xray at 0512. Blood draw this am via PICC line. Medicated once with Demerol, effective. Pt voiced frustration with current situation and that she is ready to go home. Minimal sleep this shift. Napping. No other complaints or concerns voiced. VSS, with low grade fever of 99F. Ambulating halls. Using IS. WCTM.
[2016-08-06 06:29] VITALS: BP 156/80
--- NOTE | 2016-08-06 07:47 | DIAGNOSTIC IMAGING REPORT ---
PROCEDURE: XR ABDOMEN 1 VIEW INDICATION: s/p lap carlos with enterotomy repair TECHNIQUE: Single view upright abdomen. COMPARISON: None. FINDINGS: No free air para paucity of bowel gas. Occasional air fluid levels in nondistended bowel. Organ shadows appear grossly normal. No unusual mass effect. There are two flat TAB drains in the right upper quadrant. Tiny surgical clip is present in the gallbladder fossa. Clear lung bases. Intact osseous structures. IMPRESSION: 1. Postsurgical changes in the right upper quadrant. 2. Nonobstructive bowel findings suggest ileus.
[2016-08-06 11:01] VITALS: BP 163/62
--- NOTE | 2016-08-06 16:50 | DIAGNOSTIC IMAGING REPORT ---
PROCEDURE: XR UPPER GI WITH GASTROGRAFIN INDICATION: Status post cholecystectomy and right upper quadrant surgery. Gastrostomy tube. Assess for bowel leak TECHNIQUE: Single contrast study. 240 ml of gastrographin contrast material were infused into the patient's existing gastrostomy tube under fluoroscopic guidance. Fluoroscopy time, 7.9 minutes; 5315.74 mGy. 21 fluoroscopic images (including cinefluoroscopy). Dr. Pascual in attendance. COMPARISON: Comparison is made abdominal radiograph earlier today (08/06/2016). FINDINGS: Stomach is normal. There is moderate generalized narrowing and edema of the duodenal bulb and second segment of the duodenum consistent with postoperative changes. There is no evidence of bowel leak. Surgical drains are in position in the gallbladder fossa. There is no evidence of communication with the drains. IMPRESSION: 1. Moderate mucosal edema of the duodenal bulb and the second segment of the duodenum. However, there is no evidence of bowel leak. 2. Findings discussed with Dr. Pascual.
[2016-08-06 18:00] VITALS: BP 147/69
--- NOTE | 2016-08-06 18:18 | NUR ---
PT IS HAVING SEVERAL TRIPS TO BATHROOM WITH LIQUID STOOL. AROUND 6 TRIPS SINCE 1600. WCTM.
--- NOTE | 2016-08-06 20:49 | NUR ---
PATIENT REPORTS RUNNY STOOLS THIS EVENING. PEG TUBE REMAINS CONNECTED TO INTERMITTENT SUCTION YIELDING LIGHT GREEN BILE. CONTINUES ON TPN AND LIPID INFUSION.
[2016-08-06 22:15] VITALS: BP 160/74
[2016-08-07 03:21] VITALS: BP 141/67
[2016-08-07 07:01] VITALS: BP 140/71
[2016-08-07 10:48] VITALS: BP 143/64
--- NOTE | 2016-08-07 10:57 | NUR ---
NUTRITION FOLLOW UP NOTE: Pt started on clear liquids this am, spoke with surgeon states that will likely see decrease in blood sugars now that TPN to taper down and d/c, and he will put pt back on metformin. Rev'd meds and labs. Rec continue to advance diet as tolerated when medically appropriate. No signficant changes in wts note, some fluctuations seen but expected with IVFs/TPN.
--- NOTE | 2016-08-07 12:44 | NUR ---
I discussed with the patient their current medications, possible side effects, and answered questions.
--- NOTE | 2016-08-07 14:24 | NUR ---
In to see patient, RN states that there is a reddened area that was underneath the drain dressing. Upon assessment there is a pink area with pale section, with what looks like no pigment in it, pt denies pain or itching, there is a slight raised area as well, Hydraguard cream applied and allowed to dry, report given to RN, to continue to monitor area.
--- NOTE | 2016-08-07 14:25 | NUR ---
PATIENT VSS. NOT NEEDING MEDS FOR PAIN. UP WALKING IN THE HALLS. TOLERATING CLEAR LIQUID DIET WELL. REDUCED TPN TO 37mL/HR AND CONTINUING BAG UNTIL COMPLETE THEN WILL DC. CHANGED RATE AT 11:00. PEG TUB CLAMPED. TAB X2 PUTTING OUT CLEAR/PINK MINIMAL LIQUID. VOIDING IN THE BATHROOM. SHOWERED THIS AFTERNOON. CHANGED DRESSING ON TAB SITES. NOTICED AN IRRITATED SPOT NEAR THE TAB DRAIN AND LET TRINA (WOUND CARE) KNOW AND ASKED HER TO LOOK AT IT. WHEN I REDRESSED THE WOUND LET THE IRRITATED AREA OPTN TO AIR.
[2016-08-07 14:53] VITALS: BP 145/78
--- NOTE | 2016-08-07 16:49 | NUR ---
PT IS A&OX3, LS CTA AND BT ACTIVE. PT HAS HAD FLATUS AND DIARRHEA TODAY. 2 JPS ARE DRAINING SEROSANGINOUS DRAINAGE, BOTH DRESSINGS ARE C/D/I. PEG TUBE IS TAPED PER MD AND DRESSING IS C/D/I. 2 TROCHAR SITES THAT ARE VISIBLE ARE ALSO C/D/I. NO C/O PAIN OR NAUSEA. NO SOB. SL'D PICC LINE AFTER TPN IS COMPLETE PER DR HERNANDEZ. AMBULATING AROUND UNIT AND TOLERATING WELL. RESTING W/ CALL LIGHT IN REACH.
[2016-08-07 18:15] VITALS: BP 145/74
[2016-08-07 22:40] VITALS: BP 121/51
[2016-08-08 02:16] VITALS: BP 132/68
[2016-08-08 06:50] VITALS: BP 148/71
[2016-08-08] MEDS ORDERED: HYCET1 ML PO (08:41)
--- NOTE | 2016-08-08 08:44 | Provider's Discharge Care Plan ---
Problem, Goal, Plan Problem List 1. S/P laparoscopic cholecystectomy Goals: Improve disease control, Therapeutic intervention Instructions: Follow up as directed, Take meds as directed, TAB DRAIN CARE INSTRUCTIONS GET LABS DONE BEFORE CLINIC VISIT IN ONE WEEK
--- NOTE | 2016-08-08 12:35 | NUR ---
PT DC'D IN STABLE CONDITION, AMBULATORY, VOIDING, PAIN AND NAUSEA CONTROLLED, PT COMPLIANT WITH POC AND VERBALIZED UNDERSTANDING OF DC INSTRUCTIONS. PT'S FRIEND HERE TO TAKE PT HOME THIS AFTERNOON. RX SENT WITH PT. PT TO FOLLOW UP WITH DR HERNANDEZ IN 1 WEEK. WALKED OUT TO VEHICLE WITH GIANCARLO ASHER.
--- NOTE | 2016-08-08 13:05 | NUR ---
PATIENT DISCHARGED TO HOME. HER FRIEND CAME TO PICK HER UP. WENT HOME WITH ALL PERSONAL BELONGINGS. SHE DID NOT HAVE ANY HOME MEDS. PATIENT SENT WITH SUPPLIES TO CHANGE DRESSINGS. REMOVED PICC LINE IN RIGHT UPPPER ARM. TOLERATED WELL. PATIENT STATES UNDERSTANDING OF DISCHARGE EDUCATION. STAFF MEMBER WALKED PATIENT TO THE CAR. EDUCATED PATIENT ON TAB DRAINS & PEG TUPE. PATIENT KNOWS TO CALL FOR FOLLOW UP APT WITH MD.
--- NOTE | 2016-08-09 09:03 | DISCHARGE SUMMARY ---
ADMIT DATE: 07/31/2016 DISCHARGE DATE: 08/08/2016 ADMISSION DIAGNOSIS: 1. Acute cholecystitis, probable hydrops of the gallbladder DISCHARGE DIAGNOSES: 1. Acute cholecystitis, cholelithiasis and empyema of the gallbladder. 2. Suspected intraoperative tear of the duodenum. PROCEDURE PERFORMED: 1. Laparoscopic cholecystectomy and repair of tear, duodenum. INDICATION: The patient is a 60-year-old female who 1 week prior to admission thought she had intestinal flu. She saw her physician after approximately 2 days. He examined her, arleen some labs, and started her on some medication. The pain persisted, worsening throughout the day of admission, complaining of severe stabbing pain, right upper quadrant radiating into her back. All week long, she stated she had fever and chills, nausea and vomiting. No zoila-colored stool or dark urine. She was evaluated in the emergency department, noted to have a white count of 10.7. Ultrasound of the gallbladder showed a 1.8 cm stone impacted in the neck of gallbladder, thickened gallbladder wall and questionable pericholecystic fluid and steatosis of the liver. On physical examination, she had a positive Butler sign. HOSPITAL COURSE: The patient was admitted to [facility], taken to the operating room where she underwent a laparoscopic evaluation of the right upper quadrant. At surgery, she was noted to have intense inflammatory process in the right upper quadrant in the area of the right lobe of the liver. The gallbladder was very difficult to visualize secondary to the inflammatory reaction. Omentum was firmly adherent to the right lobe of the liver and the gallbladder. In the process of peeling off the inflamed, thickened fibrotic omentum from the thickened fibrotic gallbladder, mucosa was identified in the area of the duodenum. It was suspected that this was a tear in the duodenum. The anatomical planes and anatomy of the gallbladder could not be discerned. Rather than risk injury to the portal triad and further injury to the duodenum, the anterior wall of the gallbladder was removed using electrocautery dissection. A large stone impacted in the neck of gallbladder was removed. It should be noted that on entering the gallbladder, there were copious amounts of purulent fluid within it. There was no attempt made to clip off the cystic duct for fear of further injury to the surrounding structures. The exposed mucosa of the suspected duodenal injury was approximated using interrupted suture. A PEG tube was placed to decompress the stomach rather than have the patient have a nasogastric tube postoperatively, and she was started immediately on TPN. On postoperative day number 1, her white count was 14.8, hemoglobin and hematocrit 10.5 and 32.5 respectively. Byron-Yates drain A, which was overlying the duodenal repair, put out 66 mL of serosanguineous fluid. Byron-Yates drain B placed in the area of the gallbladder fossa had put out 35 mL of serosanguineous fluid. On postoperative day 3, white count 13.2. Byron-Yates drain A, 35 serosanguineous fluid. Byron-Yates drain B, 22 mL. The patient on postoperative day number 5 underwent an upper gastrointestinal series with Gastrografin via her PEG tube. It showed no evidence of leak and no evidence of obstruction. On postoperative day number 6, the patient was started on a clear liquid diet. She was ambulatory, passing loose stools, probably secondary to the Gastrografin. Byron-Yates drain A was 38 mL of serosanguineous fluid, Byron-Yates drain B 30 mL of serosanguineous fluid. The patient was discharged home on postoperative day number 7. She was comfortable, tolerating a clear liquid diet, ambulatory, was having bowel movements and passing flatus. Blood pressure 148/71, pulse 59, respirations 18, temperature 98.2. Her lungs were clear. She had O2 saturations of 95%. Her abdomen was soft. PEG tube in place and clamped. Byron-Yates drain A 23 mL, Byron-Yates drain B had put out 40 mL now bilious material which had not been bilious prior. Her white count was 10.0 and her electrolytes were normal. She was instructed to follow up with [facility] in 1 week. She was to get a CBC, a Chem-12 prior to that visit. DISCHARGE INSTRUCTIONS/MEDICATIONS: She was discharged on a full liquid diet. No carbonated drinks metformin, home medications 1000 mg daily, simvastatin 20 mg daily, as well as her blood pressure medication. She was also discharged on Hycet elixir 1 tablespoon 6 hours p.r.n. pain. She was discharged with wound care instructions, Byron-Yates drain care instructions.
== END 2016-08-08 12:35 | disposition home or self-care (01) | DRG 418 ==
LOC: ED SRH 19:27 → TRANS SRH 21:37 → ACUTE2 SRH 23:27
PROVIDERS: Specialist; ADMIT Emergency Medicine
PROC: 0FN44ZZ Release Gallbladder, Percutaneous Endoscopic Approach (ICD-10-PCS; principal; 2016-08-01 10:00)
PROC: 0DH63UZ Insertion of Feeding Device into Stomach, Percutaneous Approach (ICD-10-PCS; principal; 2016-08-01 10:00)
PROC: 0FB44ZZ Excision of Gallbladder, Percutaneous Endoscopic Approach (ICD-10-PCS; principal; 2016-08-01 10:00)
PROC: 0FN14ZZ Release Right Lobe Liver, Percutaneous Endoscopic Approach (ICD-10-PCS; principal; 2016-08-01 10:00)
PROC: 0DJ08ZZ Inspection of Upper Intestinal Tract, Via Natural or Artificial Opening Endoscopic (ICD-10-PCS; principal; 2016-08-01 10:00)
PROC: 0DQ94ZZ Repair Duodenum, Percutaneous Endoscopic Approach (ICD-10-PCS; principal; 2016-08-01 10:00)
PROC: 02HV33Z Insertion of Infusion Device into Superior Vena Cava, Percutaneous Approach (ICD-10-PCS; 2016-08-01 10:00)
PROC: 3E0436Z Introduction of Nutritional Substance into Central Vein, Percutaneous Approach (ICD-10-PCS; 2016-08-02)
DX: K80.00 Calculus of gallbladder with acute cholecystitis without obstruction (principal); K91.71 Accidental puncture and laceration of a digestive system organ or structure during a digestive system procedure; K66.0 Peritoneal adhesions (postprocedural) (postinfection); E11.9 Type 2 diabetes mellitus without complications; Z79.84 Long term (current) use of oral hypoglycemic drugs
CPT/HCPCS: 50002; 60001; 70002; 80102; 80212; 80248; 80813; 82284; 82385; 82669; 82794; 82807; 83198; 83338; 83339; 83348; 83353; 83587; 83920; 83937; 83982; 84038; 84044; 85490; 90004; 90047; 90074; 90098; 90100; 90101; 90616; 91320; 92235; 92530; 92610; 92720; 92740; 94060; 95059

== ENCOUNTER 2016-08-14 08:04 | Outpatient (CLI) | payer OTHER ==
[~2016-08-14 08:04] MED LIST: HYCET1 ML PO; METFORMIN HCL500 MG PO; OMEPRAZOLE20 M1 PO; SIMVASTATIN20 MG PO; VICODIN EQUIVAL1 TAB PO
== END 2016-08-14 23:00 ==
LOC: LAB SRH 08:04
DX: Z90.49 Acquired absence of other specified parts of digestive tract (principal)
CPT/HCPCS: 90074; 90100; 95059

== ENCOUNTER 2016-08-18 11:21 | Outpatient (CLI) | payer OTHER ==
--- NOTE | 2016-08-19 12:54 | DIAGNOSTIC IMAGING REPORT ---
PROCEDURE: NM HEPATOBILIARY IMAGING INDICATION: Status post cholecystectomy with surgical drains. Possible bile leak. TECHNIQUE: 8 mCi of technetium-99m Choletec was injected intravenously and images were acquired over a 1.5 hour time interval. COMPARISON: Comparison is made to intraoperative cholangiogram (08/01/2016) and abdominal radiograph (08/06/2016). FINDINGS: There is prompt liver uptake. Common duct and duodenum are identified at 10 minutes. There is no evidence of biliary leak on this study. Lateral abdominal radiographs were obtained at the end of the study, and there is no evidence of isotope in the Byron-Yates drainage bulb. IMPRESSION: 1. Status post cholecystectomy. 2. No evidence of biliary obstruction. 3. No evidence of biliary leak. 4. Findings discussed with Dr. Pascual.
== END 2016-08-18 23:00 ==
LOC: NM SRH 11:21
DX: Z90.49 Acquired absence of other specified parts of digestive tract (principal)

== ENCOUNTER 2016-09-01 08:15 | Outpatient (CLI) | payer OTHER | END 2016-09-01 23:00 | LOC: LAB SRH 08:15 | DX: R10.11 Right upper quadrant pain (principal); Z90.49 Acquired absence of other specified parts of digestive tract | CPT/HCPCS: 90074; 90100; 95059 ==

== ENCOUNTER 2016-09-02 13:37 | Emergency (ER) | payer OTHER ==
--- NOTE | 2016-09-02 14:50 | ED ORDER SUMMARY ---
..... Patient: MORENA CORDERO OrderSheet [facility] VisitID: [id number] [place] [address] 61y, F Registration Date/Time: 09/02/2016 ORDER SHEET Weight: 102.0 kg (stated) Allergies: Shellfish-derived Products GENERAL ORDERS: Blood Culture (No) (n/a) Urgent (13:51 09/02/2016 EKoroleva P.A.-C) (Ack 14:02 PWeiler ER Tech1) (14:21 EHassan R.N.) CBC w Diff Urgent (13:51 09/02/2016 EKoroleva P.A.-C) (Ack 14:02 PWeiler ER Tech1) (14:21 EHassan R.N.) CMP Urgent (13:51 09/02/2016 EKoroleva P.A.-C) (Ack 14:02 PWeiler ER Tech1) (14:21 EHassan R.N.) Lactate, Serum Urgent (13:51 09/02/2016 EKoroleva P.A.-C) (Ack 14:02 PWeiler ER Tech1) (14:21 EHassan R.N.) PCT (Procalcitonin) Urgent (13:51 09/02/2016 EKoroleva P.A.-C) (Ack 14:02 PWeiler ER Tech1) (14:21 EHassan R.N.) CT Abd/Pel w Cont (Yes) (seelab) (post op pain/ infection) Urgent (14:03 09/02/2016 EKoroleva P.A.-C) (Ack 14:10 PWeiler ER Tech1) (14:30 EHassan R.N.) MEDICATION ORDERS: Keflex PO 500 mg (NOW) (14:46 09/02/2016 EKoroleva P.A.-C) (14:59 EHassan R.N.) KCl PO 40 meq (NOW) (14:48 09/02/2016 EKoroleva P.A.-C) (15:00 EHassan R.N.) IV FLUIDS: IV Saline Lock (13:52 09/02/2016 Becky P.A.-C) (14:21 EHassan R.N.) Dilaudid IV 1 mg (HIGH ALERT MEDICATION, NOW) (13:55 09/02/2016 Becky P.A.-C) (14:30 EHassan R.N.) IV NS : initial bolus 500 mL (1000 mL/hr), then 500 mL/hr for X1 (NOW); Drew (13:55 09/02/2016 Becky P.A.-C) (14:51 EHassan R.N.) ORDER SHEET NOTES: [Electronically signed by Chiara Olson R.N. (15:27 09/02/2016)] [Electronically signed by Layla Arnodl-Bennett (15:58 09/02/2016)] [Electronically locked/signed by Chiara Olson R.N. (15:27 09/02/2016)]
--- NOTE | 2016-09-02 14:50 | ED ORDER SUMMARY ---
..... Patient: MORENA CORDERO OrderSheet [facility] VisitID: [id number] [place] [address] 61y, F Registration Date/Time: 09/02/2016 ORDER SHEET Weight: 102.0 kg (stated) Allergies: Shellfish-derived Products GENERAL ORDERS: Blood Culture (No) (n/a) Urgent (13:51 09/02/2016 EKoroleva P.A.-C) (Ack 14:02 PWeiler ER Tech1) (14:21 EHassan R.N.) CBC w Diff Urgent (13:51 09/02/2016 EKoroleva P.A.-C) (Ack 14:02 PWeiler ER Tech1) (14:21 EHassan R.N.) CMP Urgent (13:51 09/02/2016 EKoroleva P.A.-C) (Ack 14:02 PWeiler ER Tech1) (14:21 EHassan R.N.) Lactate, Serum Urgent (13:51 09/02/2016 EKoroleva P.A.-C) (Ack 14:02 PWeiler ER Tech1) (14:21 EHassan R.N.) PCT (Procalcitonin) Urgent (13:51 09/02/2016 EKoroleva P.A.-C) (Ack 14:02 PWeiler ER Tech1) (14:21 EHassan R.N.) CT Abd/Pel w Cont (Yes) (seelab) (post op pain/ infection) Urgent (14:03 09/02/2016 EKoroleva P.A.-C) (Ack 14:10 PWeiler ER Tech1) (14:30 EHassan R.N.) MEDICATION ORDERS: Keflex PO 500 mg (NOW) (14:46 09/02/2016 EKoroleva P.A.-C) (14:59 EHassan R.N.) KCl PO 40 meq (NOW) (14:48 09/02/2016 EKoroleva P.A.-C) (15:00 EHassan R.N.) IV FLUIDS: IV Saline Lock (13:52 09/02/2016 Becky P.A.-C) (14:21 EHassan R.N.) Dilaudid IV 1 mg (HIGH ALERT MEDICATION, NOW) (13:55 09/02/2016 Becky P.A.-C) (14:30 EHassan R.N.) IV NS : initial bolus 500 mL (1000 mL/hr), then 500 mL/hr for X1 (NOW); Drew (13:55 09/02/2016 Becky P.A.-C) (14:51 EHassan R.N.) ORDER SHEET NOTES: [Electronically signed by Chiara Olson R.N. (15:27 09/02/2016)] [Electronically signed by Layla Arnold-Bennett (15:58 09/02/2016)] [Electronically locked/signed by Chiara Olson R.N. (15:27 09/02/2016)]
--- NOTE | 2016-09-02 14:50 | ED NURSING NOTES ---
Clinical Report - Nurses [facility] [place] [address] 09/02/2016 13:38 Patient: MORENA CORDERO TRIAGE Triage time 1353 PM. Acuity: LEVEL 3. Chief Complaint: ABDOMINAL PAIN, NAUSEA and VOMITING. Alert. No acute distress. SEPSIS SCREEN: Sepsis Screen. Infection suspected/documented. Protocol initiated. --13:59 Chiara Olson R.N. 13:53 09/02/16. BP: 145/69 (regular adult cuff) taken on the left arm, via an automated monitor, while lying. HR: 93. RR: 16. O2 saturation: 95% on room air. Temp: 98.3 F (oral). Pain level now: 810. --13:59 Chiara Olson R.N. Weight: 102 kg stated. Height/Length: 66 inches Per Patient. BMI: 36.3. --13:54 Chiara Olson R.N. Medications MetFORMIN HCl Oral 500mg ER -- 2 tabs at HS. Simvastatin Oral 20 mg, daily. Vicodin Oral 5 mg, daily. --13:55 Chiara Olson R.N. Allergies Shellfish-derived Products. --13:55 Chiara Olson R.N. Medication/allergy information source: the patient. --13:59 Chiara Olson R.N. History Arrived by private vehicle. Historian: patient. Accompanied by family. Primary physician (Dr. Pascual). ( Pt states had surgery with Dr. Pascual for gallbladder removed on the , just saw him yesterday for removal of TAB on the right side, which he "packed" This morning pt woke up in a lot of pain on the right lower quadrant, sweaty. Vomited yesterday. Pt called Dr. Pascual and was told to come to ED for further evaluation.). This started today. She has had fever, nausea, vomiting and abdominal pain. No diarrhea or constipation. Last oral intake by patient was breakfast this morning. Treatment LEGAL COMPLIANCE OFFICER: None. PAST MEDICAL HX: Immunizations: up-to-date. SOCIAL HX: Never smoker. No alcohol use or drug use. No recent travel. No infectious disease exposure. No known contact with a sick individual. ABUSE ASSESSMENT: No report of abuse. SELF HARM ASSESSMENT: A self harm assessment was performed. The patient answered "no" to the question "Do you have thoughts of harming or killing yourself?" and "Have you recently had thoughts about harming or killing others?". FALL RISK ASSESSMENT: Fall risk assessment completed. No fall risk identified. NUTRITIONAL RISK ASSESSMENT: The nutritional risk assessment revealed no deficiencies. FUNCTIONAL ASSESSMENT: Functional assessment: no impairments noted. LEARNING NEEDS ASSESSMENT: The learning needs assessment revealed no barriers. SKIN INTEGRITY ASSESSMENT: Skin integrity risk assessment completed. No skin integrity risk identified. --13:59 Chiara Olson R.N. PROBLEMS: Gastroesophageal Reflux. Hyperlipidemia. Biliary Colic. Diabetes Mellitus. --13:55 Chiara Olson R.N. ADDITIONAL SURGERIES: Cholecystectomy. . --13:55 Chiara Olson R.N. Interventions ID band on patient. --13:59 Chiara Olson R.N. PHYSICAL ASSESSMENT Ambulatory to room. GENERAL / NEURO / PSYCH: Alert. Oriented X 4. Appears in no acute distress. Appears in pain. HEENT: Mucous membranes are pink. RESPIRATORY: Respirations not labored. Breath sounds within normal limits. CVS: Capillary refill less than 2 seconds. GI / : The patient has had nausea. Abdominal distention. Abdominal tenderness. Rebound tenderness. Guarding present. Bowel sounds within normal limits. SKIN: Skin is warm and dry. --14:20 Chiara Olson R.N. NURSING PROGRESS NOTES The initial plan of care for this patient has been created This plan of care was discussed with the patient. Reassurance given. Two patient identifiers checked. Call light placed in reach. Side rails up x 1. Bed placed in lowest position. Brakes of bed on. --14:21 Chiara Olson R.N. 14:11 09/02/2016 Site #1 started via IV in the right wrist with an 20g angiocath; one attempt. Blood drawn: rainbow set. Labeled in the presence of the patient. --14:21 Chiara Olson R.N. 14:29 09/02/2016 Dilaudid (HYDROmorphone HCl PF) IVP 1 mg given over 1 minute(s) via site #1. Allergies verified, confirmed 5 rights and sedative warning given to the patient. IV patency established. IV site checked: no pain, redness, or swelling. IV flushed thoroughly pre- and post-medication administration. IVP given by RN. --14:30 Chiara Olson R.N. Patient transported to MA. (1430 PM). --14:30 Chiara Olson R.N. 14:51 09/02/2016 Started bag #1 500 mL IV Fluids IV NS (Saline); at 500 mL/hr over 999 hour(s) via site #1 via IV pump. Allergies verified and confirmed 5 rights. IV patency established. IV site checked: no pain, redness, or swelling. IV flushed thoroughly pre- and post-medication administration. --14:51 Chiara Olson R.N. 14:59 09/02/2016 Keflex (Cephalexin) PO Capsules 500 mg given. Allergies verified and confirmed 5 rights. --14:59 Chiara Olson R.N. 15:00 09/02/2016 KCL (Potassium Chloride ER) PO Tablets 40 meq given. Allergies verified and confirmed 5 rights. --15:00 Chiara Olson R.N. 15:00 09/02/2016 Dilaudid IVP Response: no adverse reaction pain is improving. --15:00 Chiara Olson R.N. Patient returned from MA. (1440 PM). --15:00 Chiara Olson R.N. Reassurance given. The patient is calm and resting quietly. Overall patient status is the same- she states feels better. --15:02 Chiara Olson R.N. 15:01 09/02/16. BP: 135/50 (regular adult cuff) taken on the left arm, via an automated monitor, while lying. HR: 78. RR: 15. O2 saturation: 100%. Temp: 98.6 F (oral). Pain level now: 0/10. --15:02 Chiara Olson R.N. DISPOSITION / DISCHARGE 15:19 09/02/2016 Keflex PO Response: no adverse reaction. --15:24 Chiara Olson R.N. 15:19 09/02/2016 KCL PO Response: no adverse reaction. --15:24 Chiara Olson R.N. 15:20 09/02/2016 Site #1 removed upon discharge. Catheter intact. Manual pressure, pressure dressing, bandaid and bandage applied. --15:25 Chiara Olson R.N. 15:22 09/02/2016 IV Fluids IV NS Response: no adverse reaction symptoms have improved. --15:22 Chiara Olson R.N. Departure time: 1526 PM. Condition at departure: improved and stable. The goals identified in the patient's plan of care were met. Discharge instructions provided and reviewed with the patient. Reviewed need for increased fluid intake (increased K). Patient verbalized understanding. Written instructions provided in [place]. The patient was discharged by the physician cafe assistant. She was discharged home and accompanied by family. She left the Emergency Department ambulatory and via private vehicle. Family member driving. FALL RISK ASSESSMENT: Fall risk assessment completed. No fall risk identified. --15:27 Chiara Olson R.N. 15:15 09/02/16. BP: 135/54. HR: 78. RR: 14. O2 saturation: 100% on room air. Temp: 98.3 F (oral). Pain level now: 0/10. --15:27 Chiara Olson R.N. Locked/Released at 09/02/2016 15:27 by Chiara Olson R.N.
--- NOTE | 2016-09-02 14:50 | ED NURSING NOTES ---
Clinical Report - Nurses Formerly [facility] [place] [address] 09/02/2016 13:38 Patient: MORENA CORDERO TRIAGE Triage time 1353 PM. Acuity: LEVEL 3. Chief Complaint: ABDOMINAL PAIN, NAUSEA and VOMITING. Alert. No acute distress. SEPSIS SCREEN: Sepsis Screen. Infection suspected/documented. Protocol initiated. --13:59 Chiara Olson R.N. 13:53 09/02/16. BP: 145/69 (regular adult cuff) taken on the left arm, via an automated monitor, while lying. HR: 93. RR: 16. O2 saturation: 95% on room air. Temp: 98.3 F (oral). Pain level now: 810. --13:59 Chiara Olson R.N. Weight: 102 kg stated. Height/Length: 66 inches Per Patient. BMI: 36.3. --13:54 Chiara Olson R.N. Medications MetFORMIN HCl Oral 500mg ER -- 2 tabs at HS. Simvastatin Oral 20 mg, daily. Vicodin Oral 5 mg, daily. --13:55 Chiara Olson R.N. Allergies Shellfish-derived Products. --13:55 Chiara Olson R.N. Medication/allergy information source: the patient. --13:59 Chiara Olson R.N. History Arrived by private vehicle. Historian: patient. Accompanied by family. Primary physician (Dr. Pascual). ( Pt states had surgery with Dr. Pascual for gallbladder removed on the , just saw him yesterday for removal of TAB on the right side, which he "packed" This morning pt woke up in a lot of pain on the right lower quadrant, sweaty. Vomited yesterday. Pt called Dr. Pascual and was told to come to ED for further evaluation.). This started today. She has had fever, nausea, vomiting and abdominal pain. No diarrhea or constipation. Last oral intake by patient was breakfast this morning. Treatment LOG SAWYER: None. PAST MEDICAL HX: Immunizations: up-to-date. SOCIAL HX: Never smoker. No alcohol use or drug use. No recent travel. No infectious disease exposure. No known contact with a sick individual. ABUSE ASSESSMENT: No report of abuse. SELF HARM ASSESSMENT: A self harm assessment was performed. The patient answered "no" to the question "Do you have thoughts of harming or killing yourself?" and "Have you recently had thoughts about harming or killing others?". FALL RISK ASSESSMENT: Fall risk assessment completed. No fall risk identified. NUTRITIONAL RISK ASSESSMENT: The nutritional risk assessment revealed no deficiencies. FUNCTIONAL ASSESSMENT: Functional assessment: no impairments noted. LEARNING NEEDS ASSESSMENT: The learning needs assessment revealed no barriers. SKIN INTEGRITY ASSESSMENT: Skin integrity risk assessment completed. No skin integrity risk identified. --13:59 Chiara Olson R.N. PROBLEMS: Gastroesophageal Reflux. Hyperlipidemia. Biliary Colic. Diabetes Mellitus. --13:55 Chiara Olson R.N. ADDITIONAL SURGERIES: Cholecystectomy. . --13:55 Chiara Olson R.N. Interventions ID band on patient. --13:59 Chiara Olson R.N. PHYSICAL ASSESSMENT Ambulatory to room. GENERAL / NEURO / PSYCH: Alert. Oriented X 4. Appears in no acute distress. Appears in pain. HEENT: Mucous membranes are pink. RESPIRATORY: Respirations not labored. Breath sounds within normal limits. CVS: Capillary refill less than 2 seconds. GI / : The patient has had nausea. Abdominal distention. Abdominal tenderness. Rebound tenderness. Guarding present. Bowel sounds within normal limits. SKIN: Skin is warm and dry. --14:20 Chiara Olson R.N. NURSING PROGRESS NOTES The initial plan of care for this patient has been created This plan of care was discussed with the patient. Reassurance given. Two patient identifiers checked. Call light placed in reach. Side rails up x 1. Bed placed in lowest position. Brakes of bed on. --14:21 Chiara Olson R.N. 14:11 09/02/2016 Site #1 started via IV in the right wrist with an 20g angiocath; one attempt. Blood drawn: rainbow set. Labeled in the presence of the patient. --14:21 Chiara Olson R.N. 14:29 09/02/2016 Dilaudid (HYDROmorphone HCl PF) IVP 1 mg given over 1 minute(s) via site #1. Allergies verified, confirmed 5 rights and sedative warning given to the patient. IV patency established. IV site checked: no pain, redness, or swelling. IV flushed thoroughly pre- and post-medication administration. IVP given by RN. --14:30 Chiara Olson R.N. Patient transported to UT. (1430 PM). --14:30 Chiara Olson R.N. 14:51 09/02/2016 Started bag #1 500 mL IV Fluids IV NS (Saline); at 500 mL/hr over 999 hour(s) via site #1 via IV pump. Allergies verified and confirmed 5 rights. IV patency established. IV site checked: no pain, redness, or swelling. IV flushed thoroughly pre- and post-medication administration. --14:51 Chiara Olson R.N. 14:59 09/02/2016 Keflex (Cephalexin) PO Capsules 500 mg given. Allergies verified and confirmed 5 rights. --14:59 Chiara Olson R.N. 15:00 09/02/2016 KCL (Potassium Chloride ER) PO Tablets 40 meq given. Allergies verified and confirmed 5 rights. --15:00 Chiara Olson R.N. 15:00 09/02/2016 Dilaudid IVP Response: no adverse reaction pain is improving. --15:00 Chiara Olson R.N. Patient returned from UT. (1440 PM). --15:00 Chiara Olson R.N. Reassurance given. The patient is calm and resting quietly. Overall patient status is the same- she states feels better. --15:02 Chiara Olson R.N. 15:01 09/02/16. BP: 135/50 (regular adult cuff) taken on the left arm, via an automated monitor, while lying. HR: 78. RR: 15. O2 saturation: 100%. Temp: 98.6 F (oral). Pain level now: 0/10. --15:02 Chiara Olson R.N. DISPOSITION / DISCHARGE 15:19 09/02/2016 Keflex PO Response: no adverse reaction. --15:24 Chiara Olson R.N. 15:19 09/02/2016 KCL PO Response: no adverse reaction. --15:24 Chiara Olson R.N. 15:20 09/02/2016 Site #1 removed upon discharge. Catheter intact. Manual pressure, pressure dressing, bandaid and bandage applied. --15:25 Chiara Olson R.N. 15:22 09/02/2016 IV Fluids IV NS Response: no adverse reaction symptoms have improved. --15:22 Chiara Olson R.N. Departure time: 1526 PM. Condition at departure: improved and stable. The goals identified in the patient's plan of care were met. Discharge instructions provided and reviewed with the patient. Reviewed need for increased fluid intake (increased K). Patient verbalized understanding. Written instructions provided in Togolese. The patient was discharged by the physician behavioral health assistant. She was discharged home and accompanied by family. She left the Emergency Department ambulatory and via private vehicle. Family member driving. FALL RISK ASSESSMENT: Fall risk assessment completed. No fall risk identified. --15:27 Chiara Olson R.N. 15:15 09/02/16. BP: 135/54. HR: 78. RR: 14. O2 saturation: 100% on room air. Temp: 98.3 F (oral). Pain level now: 0/10. --15:27 Cihara Olson R.N. Locked/Released at 09/02/2016 15:27 by Chiara Olson R.N.
--- NOTE | 2016-09-02 14:50 | ED CLINICAL REPORT ---
Clinical Report - Physicians/Mid Levels [facility] [address] [place] [address] 09/02/2016 13:38 Patient: MORENA CORDERO Time Seen: 1300Apr 2016. Arrived- By private vehicle. Historian- patient. HISTORY OF PRESENT ILLNESS Chief Complaint: SKIN RASH and (abd pain, post op complicaitns). This started 3-4 days and is still present. It is described as painful. It has been located on the right abdomen. No cause has been identified. (Patient is status post admission to the hospital, and surgery, on the 01 August for acute cholecystitis, with upper GI endoscopy at the same time, concern for perforated suspected duodenum. Has been seen Dr. Pascual since surgery multiple occasions. Her last TAB tube removed on the . Saw Dr. Pascual is well yesterday, on the , had a small incision and drainage of an abscess area on the right aspect. Patient has had weakness worsening. Sent to ER From christiana Pascual (Surgeon)). REVIEW OF SYSTEMS The patient has had chills. No difficulty breathing or lump in throat. All systems otherwise negative, except as recorded above. PAST HISTORY Problems: Gastroesophageal Reflux. Hyperlipidemia. Biliary Colic. Diabetes Mellitus. Additional Surgeries: Cholecystectomy. . Medications: MetFORMIN HCl Oral 500mg ER -- 2 tabs at HS. Simvastatin Oral 20 mg, daily. Vicodin Oral 5 mg, daily. Allergies: Shellfish-derived Products. SOCIAL HISTORY Never smoker. No alcohol use or drug use. ADDITIONAL NOTES The nursing notes have been reviewed. PHYSICAL EXAM Vital Signs: 09/02/2016 13:53 BP: 145/69. HR: 93. RR: 16. O2 saturation: 95%. Temp: 98.3 F. Pain level now: 8/10. Appearance: Alert. No acute distress. Neck: Neck supple. CVS: Normal heart rate and rhythm. Heart sounds normal. Respiratory: No respiratory distress. Breath sounds normal. Abdomen: Tenderness in the right side of the abdomen (erythema of right side with open wound and packing, purulent drainage, tenderness. Epigastric tube in place, no surrounding erythema). Skin: Skin warm. Cellulitis (r. abd). There is warmth. LABS, X-RAYS, AND EKG Abdominal CT: IMPRESSION: 1. Moderate inflammatory changes of right lower abdominal wall trocar site associated with small amount of air in the tract. Findings are compatible with inflammation/wound infection. No definite evidence of fluid collection or abscess. 2. Status post cholecystectomy and gastrostomy. 3. Otherwise negative CT abdomen and pelvis. No evidence of intra-abdominal fluid collection or free air. 4. Findings discussed with Dr. Pascual. All CT scans at this facility use dose modulation, iterative reconstruction, and/or weight-based dosing when appropriate to reduce radiation dose to as low as reasonably achievable. Electronically Final signed by:Vishal Huang MD 09/02/2016 3:41:45 PM. Laboratory Tests: CBC w Diff: (ROSA: 09/02/2016 14:10) ( MsgRcvd 09/02/2016 14:23) Final results Test Result Flag Units (Reference) WHITE BLOOD COUNT 14.6 H K/uL (4.5-11.5) RED BLOOD COUNT 3.76 L M/uL (4.00-5.20) HEMOGLOBIN 10.3 L gm/dL (12.0-16.0) HEMATOCRIT 31.5 L % (36.0-46.0) MEAN CELL VOLUME 84 fL (80-100) MEAN CORPUSCULAR HGB 27 pg (26-34) MEAN CORPUSCULAR HGB CONC 33 g/dL (31-37) RED CELL DISTRIBUTION WIDTH 15.0 H % (11.6-14.8) PLATELET COUNT 540 H K/uL (150-400) NEUTROPHIL % 71.4 % (50-75) LYMPH % 21.8 L % (25-40) MONO % 5.9 % (3-14) EOSINOPHIL % 0.5 % (0-4) BASOPHIL % 0.4 % (0-2) Lactate, Serum: (ROSA: 09/02/2016 14:10) ( MsgRcvd 09/02/2016 14:47) Final results Test Result Flag Units (Reference) LACTIC ACID 0.9 mmol/L (0.4-2.0) [id number]: (ROSA: 09/02/2016 14:10) ( MsgRcvd 09/02/2016 14:53) Final results Test Result Flag Units (Reference) PROCALCITONIN <0.5 ng/mL (0-0.5) PCT Concentration: Interpretation : Risk/option for action PCT <=0.5 ng/mL : Systemic : Low risk forinfection(sepsis): progression to severeis not likely. : systemic infection.Local bacterial : CAUTION-PCT levelsinfection is : below 0.5 ng/mL do notpossible. : exclude an infection,because localizedinfections (withoutsystemic signs) may beassociated with suchlow levels. If PCT ismeasured very earlyafter a bacterialchallenge (usually <6hours), these valuesmay still be low. Inthis case PCT shouldbe re-assessed 6-24hours later. PCT >0.5 and : Systemic infection: Moderate risk for<= 2 ng/mL : (sepsis) is : progression to severepossible, but : systemic infection.other conditions : The patient should beare known to : closely monitoredelevate PCT. : both clinically andby re-assessing PCTwithin 6-24 hours. PCT > 2 ng/mL : Systemic infection: High risk for(sepsis) is likely: progression to severeunless other : systemic infection.causes are known. : PCT >= 10 ng/mL : Important systemic: High likelihood ofinflammatory : severe sepsis orresponse, almost : septic shock.exclusively due to:severe bacterial :sepsis or septic :shock. : CMP: (ROSA: 09/02/2016 14:10) ( MsgRcvd 09/02/2016 14:45) Final results Test Result Flag Units (Reference) GLUCOSE 129 H mg/dL (70-110) BUN 7 mg/dL (7-18) CREATININE 0.7 mg/dL (0.6-1.3) Estimated GFR >60 mL/min Estimated GFR- >60 mL/min Note: Persistent reduction over 3 months in eGFR<60 mL/min/1.73 m2 defines CKD. Patients with eGFR values>=60 mL/min/1.73 m2 may also have CKD if evidence ofpersistent proteinuria. Additional information may be foundat www.kidney.org. SODIUM 138 mmol/L (136-145) POTASSIUM 3.2 L mmol/L (3.5-5.1) CHLORIDE 97 L mmol/L (98-107) CARBON DIOXIDE 31 mmol/L (21-32) CALCIUM 9.5 mg/dL (8.5-10.1) TOTAL PROTEIN 8.5 H g/dL (6.4-8.2) ALBUMIN 2.7 L g/dL (3.3-5.0) BILIRUBIN, TOTAL 0.4 mg/dL (0.0-1.0) ALKALINE PHOSPHATASE 96 U/L (46-116) AST (SGOT) 17 U/L (15-37) ALT (SGPT) 10 L U/L (12-78) . PROGRESS AND PROCEDURES Course of Care: previous records reviewed. Patient was admitted on 31 July this year, and discharged on the , with acute cholecystitis, with complications including possible tear of the duodenum, and TAB placement. Patient was seen here by her surgeon, Dr. Pascual. Patient was size of leukocytosis, signs of hypokalemia, she does have an open wound on the right aspect from previous stroke her, with drainage and packing to the area. This will be remaining in her abdomen. She sustained Dr. Pascual in 2 days. Started on Keflex. Lactic acid, procalcitonin neg. 09/02/2016 15:15 BP: 135/54. HR: 78. RR: 14. O2 saturation: 100%. Temp: 98.3 F. Pain level now: 0/10. Patient is stable. Symptoms better. Patient/family counseled. Disposition: Discharged. CLINICAL IMPRESSION Single abscess to the abdominal wall with incision and drainage ((previous I/D)). Hypokalemia Post-operative complication from gastrointestinal surgery- cellulitis and abscess. No septic shock present. INSTRUCTIONS (warm packs to the right abdomen FOLLOW UP WITH MARY as discussed with him). Prescription Medications: Keflex 500 mg: take 1 capsule orally every 6 hours for 10 days. No refill. Substitution is permissible. Hydrocodone/APAP 7.5mg / 325mg: take 1 orally every 6 hours as needed for pain. Dispense fifteen (15). No refill. Klor-Con 10 mEq: take 1 tablet orally every 8 hours. Dispense fifteen (15). No refills. Substitution is permissible. (Electronically signed by Layla Arnold P.A.-C 09/02/2016 15:58)
--- NOTE | 2016-09-02 15:46 | DIAGNOSTIC IMAGING REPORT ---
PROCEDURE: CT ABDOMEN/PELVIS W/O CONTRAST INDICATION: Abdominal pain. Status post cholecystectomy and gastrostomy tube placement. TECHNIQUE: Noncontrast axial images were obtained of the entire abdomen and pelvis with sagittal and coronal reformations. COMPARISON: Made to upper GI on 08/06/2016. FINDINGS: ABDOMEN: There are moderate inflammatory changes of the right lower quadrant abdominal wall trocar site with a small amount of air within the tract. There is no evidence of fluid collection or abscess. Status post cholecystectomy with mild residual postoperative inflammatory changes. Status post gastrostomy. Liver, spleen, pancreas, kidneys, and aorta are normal. Moderate degenerative changes of the lumbar spine. PELVIS: Uterus and adnexal structures are normal. No evidence of free fluid. IMPRESSION: 1. Moderate inflammatory changes of right lower abdominal wall trocar site associated with small amount of air in the tract. Findings are compatible with inflammation/wound infection. No definite evidence of fluid collection or abscess. 2. Status post cholecystectomy and gastrostomy. 3. Otherwise negative CT abdomen and pelvis. No evidence of intra-abdominal fluid collection or free air. 4. Findings discussed with Dr. Pascual. All CT scans at this facility use dose modulation, iterative reconstruction, and/or weight-based dosing when appropriate to reduce radiation dose to as low as reasonably achievable.
--- NOTE | 2016-09-02 15:58 | ED MED RECONCILIATION SUMMARY ---
Patient: MORENA CORDERO Medication Reconciliation Report [facility] VisitID: [id number] [address] [place] [address] 61y, F Registration Date/Time: 09/02/2016 Weight: 102.0 kg Height/Length: 66 in. BMI: 36.3 ALLERGIES: Shellfish-derived Products The patient's Home Medications are listed below: THE FOLLOWING MEDICATIONS NEED TO BE RECONCILED: MetFORMIN HCl Oral 500mg ER -- 2 tabs at HS Simvastatin Oral 20 mg, daily Vicodin Oral 5 mg, daily The source(s) of the original Home Medication information: patient The following Medications were given to the patient in the Emergency Department: Dilaudid [IVP] IVP 1 mg, administered: 09/02/2016 2:29:00 PM IV NS IV Fluids bolus 0, then 500 mL/hr, administered: 09/02/2016 2:51:00 PM Keflex [PO] PO 500 mg, administered: 09/02/2016 2:59:00 PM KCL [PO] PO 40 meq, administered: 09/02/2016 3:00:00 PM The following Medications were prescribed to the patient: Keflex 500 mg: take 1 capsule orally every 6 hours for 10 days. No refill. Substitution is permissible. -- Layla Arnold P.A.-Bennett Hydrocodone/APAP 7.5mg / 325mg: take 1 orally every 6 hours as needed for pain. Dispense fifteen (15). No refill. -- Layla Arnold P.A.-Bennett Klor-Con 10 mEq: take 1 tablet orally every 8 hours. Dispense fifteen (15). No refills. Substitution is permissible. -- Layla Arnold P.A.-C
--- NOTE | 2016-09-02 15:58 | ED MED RECONCILIATION SUMMARY ---
Patient: MORENA CORDERO Medication Reconciliation Report [facility] VisitID: [id number] [address] [place] [address] 61y, F Registration Date/Time: 09/02/2016 Weight: 102.0 kg Height/Length: 66 in. BMI: 36.3 ALLERGIES: Shellfish-derived Products The patient's Home Medications are listed below: THE FOLLOWING MEDICATIONS NEED TO BE RECONCILED: MetFORMIN HCl Oral 500mg ER -- 2 tabs at HS Simvastatin Oral 20 mg, daily Vicodin Oral 5 mg, daily The source(s) of the original Home Medication information: patient The following Medications were given to the patient in the Emergency Department: Dilaudid [IVP] IVP 1 mg, administered: 09/02/2016 2:29:00 PM IV NS IV Fluids bolus 0, then 500 mL/hr, administered: 09/02/2016 2:51:00 PM Keflex [PO] PO 500 mg, administered: 09/02/2016 2:59:00 PM KCL [PO] PO 40 meq, administered: 09/02/2016 3:00:00 PM The following Medications were prescribed to the patient: Keflex 500 mg: take 1 capsule orally every 6 hours for 10 days. No refill. Substitution is permissible. -- Layla Arnold P.A.-Bennett Hydrocodone/APAP 7.5mg / 325mg: take 1 orally every 6 hours as needed for pain. Dispense fifteen (15). No refill. -- Layla Arnold P.A.-Bennett Klor-Con 10 mEq: take 1 tablet orally every 8 hours. Dispense fifteen (15). No refills. Substitution is permissible. -- Layla Arnold P.A.-C
--- NOTE | 2016-09-02 15:58 | ED MAR SUMMARY ---
..... Medication Administration Record [facility] [address] [place] [address] Patient: MORENA CORDERO Visit ID: [id number] 61y, F Weight: 102.0 kg Height/Length: 66 in BMI: 36.3 ALLERGIES: Shellfish-derived Products Given 14:29 09/02/2016 Chiara Olson R.N. Medication Administered: DILAUDID [IVP] (HYDROMORPHONE HCL PF), Dose: 1 mg IVP over 1 minute(s), Site: #1 right wrist. Medication Ordered: Dilaudid IV 1 mg (HIGH ALERT MEDICATION, NOW). Start 14:51 09/02/2016 Chiara Olson R.N. Medication Administered: IV NS (SALINE), Dose: IV Fluids over 999 hour(s), Rate: 500 mL/hr, Dispensed: 500 mL bag, Site: #1 right wrist. Medication Ordered: IV NS : initial bolus 500 mL (1000 mL/hr), then 500 mL/hr for X1 (NOW); Drew. Given 14:59 09/02/2016 Chiara Olson R.N. Medication Administered: KEFLEX [PO] (CEPHALEXIN), Dose: 500 mg Capsules PO. Medication Ordered: Keflex PO 500 mg (NOW). Given 15:00 09/02/2016 Chiara Olson R.N. Medication Administered: KCL [PO] (POTASSIUM CHLORIDE ER), Dose: 40 meq Tablets PO. Medication Ordered: KCl PO 40 meq (NOW).
--- NOTE | 2016-09-02 15:58 | ED DISCHARGE INSTRUCTIONS ---
Patient: MORENA CORDERO General Instructions [facility] VisitID: [id number] [place] [address] 61y, F Registration Date/Time: 09/02/2016 Single abscess to the abdominal wall with incision and drainage ((previous I/D)). Hypokalemia Post-operative complication from gastrointestinal surgery- cellulitis and abscess. No septic shock present. INSTRUCTIONS (warm packs to the right abdomen FOLLOW UP WITH MARY as discussed with him). Prescription Medications: Keflex 500 mg: take 1 capsule orally every 6 hours for 10 days. No refill. Substitution is permissible. Hydrocodone/APAP 7.5mg / 325mg: take 1 orally every 6 hours as needed for pain. Dispense fifteen (15). No refill. Klor-Con 10 mEq: take 1 tablet orally every 8 hours. Dispense fifteen (15). No refills. Substitution is permissible. ADDITIONAL INFORMATION Abscess [Incision & Drainage] An abscess (sometimes called a boil) occurs when bacteria get trapped under the skin and begin to grow. Pus forms inside the abscess as the body responds to the bacteria. An abscess can occur with an insect bite, ingrown hair, blocked oil gland, pimple, cyst, or puncture wound. Treatment of your abscess has required an incision to drain the pus. If the abscess pocket was large, a gauze packing may have been inserted. This will need to be removed and possibly replaced on your next visit. Antibiotics are not required in the treatment of a simple abscess, unless the infection is spreading into the skin around the wound (known as cellulitis). Healing of the wound will take about one to two weeks depending on the size of the abscess. Healthy tissue will grow from the bottom and sides of the opening until it seals over. Home Care: The wound may drain for the first two days. Cover the wound with a clean dry dressing. If the dressing becomes soaked with blood or pus, change it. If a gauze packing was placed inside the abscess cavity, you may be advised to remove it yourself. You may do this in the shower. Once the packing is removed, you should wash the area in the shower or bath 3 to 4 times a day, until the skin opening has closed. If you were prescribed antibiotics, take them as directed until they are all gone. You may use acetaminophen (Tylenol) or ibuprofen (Motrin, Advil) to control pain, unless another pain medicine was prescribed. [ NOTE: If you have liver disease or ever had a stomach ulcer, talk with your doctor before using these medicines.] Follow Up with your doctor as advised by our staff. If a gauze packing was inserted in your wound, it should be removed in 1-2 days. Check your wound every day for the signs of worsening infection listed below. Get Prompt Medical Attention if any of the following occur: Increasing redness or swelling Red streaks in the skin leading away from the wound Increasing local pain or swelling Continued pus draining from the wound two days after treatment Fever of 100.4F (38C) or higher, or as directed by your healthcare provider Hypokalemia Hypokalemia means a low level of potassium in the blood. This most often occurs in patients who take diuretics (water pills). It can also occur due to severe vomiting or diarrhea. A mild case usually causes no symptoms. It is only found with blood testing. More severe potassium loss causes generalized weakness, muscle or abdominal cramping, heart palpitations (rapid or irregular heartbeats) and low blood pressure. Home Care: 1) Take any potassium supplements prescribed. 2) Eat foods rich in potassium. The highest amount is found in artichoke, baked potatoes, spinach, cantaloupe, honeydew melon, cod, halibut, salmon, and scallops. White, red, or cr beans are also very good sources. A modest amount is found in orange juice, bananas, carrots, and tomato juice. 3) Certain types of diuretics (water pills), such as Lasix (furosemide), require that you take potassium supplements for as long as you take the diuretic pills. If you are taking a diuretic, discuss the need for potassium supplements with your doctor. Follow Up with your doctor for a repeat blood test within the next week or as advised by our staff. Get Prompt Medical Attention if any of the following occur: -- Increased weakness -- Feeling dizzy -- Irregular heartbeat, extra beats or very fast heart rate -- Fainting spell Cephalexin Monohydrate Oral tablet What is this medicine? CEPHALEXIN (sef a CATHRYN in) is a cephalosporin antibiotic. It is used to treat certain kinds of bacterial infections It will not work for colds, flu, or other viral infections. How should I use this medicine? Take this medicine by mouth with a full glass of water. Follow the directions on the prescription label. This medicine can be taken with or without food. Take your medicine at regular intervals. Do not take your medicine more often than directed. Take all of your medicine as directed even if you think you are better. Do not skip doses or stop your medicine early. Talk to your switchboard operator receptionist regarding the use of this medicine in children. While this drug may be prescribed for selected conditions, precautions do apply. What side effects may I notice from receiving this medicine? Side effects that you should report to your doctor or health care management specialist as soon as possible: allergic reactions like skin rash, itching or hives, swelling of the face, lips, or tongue breathing problems pain or trouble passing urine redness, blistering, peeling or loosening of the skin, including inside the mouth severe or watery diarrhea unusually weak or tired yellowing of the eyes, skin Side effects that usually do not require medical attention (report to your doctor or health care management specialist if they continue or are bothersome): gas or heartburn genital or anal irritation headache joint or muscle pain nausea, vomiting What may interact with this medicine? probenecid some other antibiotics What if I miss a dose? If you miss a dose, take it as soon as you can. If it is almost time for your next dose, take only that dose. Do not take double or extra doses. There should be at least 4 to 6 hours between doses. Where should I keep my medicine? Keep out of the reach of children. Store at room temperature between 59 and 86 degrees F (15 and 30 degrees C). Throw away any unused medicine after the expiration date. What should I tell my health care provider before I take this medicine? They need to know if you have any of these conditions: kidney disease stomach or intestine problems, especially colitis an unusual or allergic reaction to cephalexin, other cephalosporins, penicillins, other antibiotics, medicines, foods, dyes or preservatives or trying to get breast-feeding What should I watch for while using this medicine? Tell your doctor or health care management specialist if your symptoms do not begin to improve in a few days. Do not treat diarrhea with over the counter products. Contact your doctor if you have diarrhea that lasts more than 2 days or if it is severe and watery. If you have diabetes, you may get a false-positive result for sugar in your urine. Check with your doctor or health care management specialist. Hydrocodone Bitartrate, Acetaminophen Oral tablet What is this medicine? ACETAMINOPHEN; HYDROCODONE (a set a MORENA cyndy fen; kirsten droe KOE done) is a pain reliever. It is used to treat mild to moderate pain. How should I use this medicine? Take this medicine by mouth. Swallow it with a full glass of water. Follow the directions on the prescription label. If the medicine upsets your stomach, take the medicine with food or milk. Do not take more than you are told to take. Talk to your switchboard operator receptionist regarding the use of this medicine in children. This medicine is not approved for use in children. What side effects may I notice from receiving this medicine? Side effects that you should report to your doctor or health care management specialist as soon as possible: allergic reactions like skin rash, itching or hives, swelling of the face, lips, or tongue breathing problems confusion feeling faint or lightheaded, falls stomach pain yellowing of the eyes or skin Side effects that usually do not require medical attention (report to your doctor or health care management specialist if they continue or are bothersome): nausea, vomiting stomach upset What may interact with this medicine? alcohol antihistamines isoniazid medicines for depression, anxiety, or psychotic disturbances medicines for sleep muscle relaxants naltrexone narcotic medicines (opiates) for pain phenobarbital ritonavir tramadol What if I miss a dose? If you miss a dose, take it as soon as you can. If it is almost time for your next dose, take only that dose. Do not take double or extra doses. Where should I keep my medicine? Keep out of the reach of children. This medicine can be abused. Keep your medicine in a safe place to protect it from theft. Do not share this medicine with anyone. Selling or giving away this medicine is dangerous and against the law. Store at room temperature between 15 and 30 degrees C (59 and 86 degrees F). Protect from light. Keep container tightly closed. Throw away any unused medicine after the expiration date. Discard unused medicine and used packaging carefully. Pets and children can be harmed if they find used or lost packages. What should I tell my health care provider before I take this medicine? They need to know if you have any of these conditions: brain tumor Crohn's disease, inflammatory bowel disease, or ulcerative colitis drink more than 3 alcohol-containing drinks per day drug abuse or addiction head injury heart or circulation problems kidney disease or problems going to the bathroom liver disease lung disease, asthma, or breathing problems an unusual or allergic reaction to acetaminophen, hydrocodone, other opioid analgesics, other medicines, foods, dyes, or preservatives or trying to get breast-feeding What should I watch for while using this medicine? Tell your doctor or health care management specialist if your pain does not go away, if it gets worse, or if you have new or a different type of pain. You may develop tolerance to the medicine. Tolerance means that you will need a higher dose of the medicine for pain relief. Tolerance is normal and is expected if you take the medicine for a long time. Do not suddenly stop taking your medicine because you may develop a severe reaction. Your body becomes used to the medicine. This does NOT mean you are addicted. Addiction is a behavior related to getting and using a drug for a non-medical reason. If you have pain, you have a medical reason to take pain medicine. Your doctor will tell you how much medicine to take. If your doctor wants you to stop the medicine, the dose will be slowly lowered over time to avoid any side effects. You may get drowsy or dizzy when you first start taking the medicine or change doses. Do not drive, use machinery, or do anything that may be dangerous until you know how the medicine affects you. Stand or sit up slowly. There are different types of narcotic medicines (opiates) for pain. If you take more than one type at the same time, you may have more side effects. Give your health care provider a list of all medicines you use. Your doctor will tell you how much medicine to take. Do not take more medicine than directed. Call emergency for help if you have problems breathing. The medicine will cause constipation. Try to have a bowel movement at least every 2 to 3 days. If you do not have a bowel movement for 3 days, call your doctor or health care management specialist. Too much acetaminophen can be very dangerous. Do not take Tylenol (acetaminophen) or medicines that contain acetaminophen with this medicine. Many non-prescription medicines contain acetaminophen. Always read the labels carefully. You have been given the following additional information: Abscess, Incision And Drainage Hypokalemia Cephalexin Monohydrate Oral tablet Hydrocodone Bitartrate, Acetaminophen Oral tablet (Electronically signed by Layla Arnold P.A.-C 09/02/2016 15:58)
--- NOTE | 2016-09-02 15:58 | ED MAR SUMMARY ---
..... Medication Administration Record [facility] [address] [place] [address] Patient: MORENA CORDERO Visit ID: [id number] 61y, F Weight: 102.0 kg Height/Length: 66 in BMI: 36.3 ALLERGIES: Shellfish-derived Products Given 14:29 09/02/2016 Chiara Olson R.N. Medication Administered: DILAUDID [IVP] (HYDROMORPHONE HCL PF), Dose: 1 mg IVP over 1 minute(s), Site: #1 right wrist. Medication Ordered: Dilaudid IV 1 mg (HIGH ALERT MEDICATION, NOW). Start 14:51 09/02/2016 Chiara Olson R.N. Medication Administered: IV NS (SALINE), Dose: IV Fluids over 999 hour(s), Rate: 500 mL/hr, Dispensed: 500 mL bag, Site: #1 right wrist. Medication Ordered: IV NS : initial bolus 500 mL (1000 mL/hr), then 500 mL/hr for X1 (NOW); Drew. Given 14:59 09/02/2016 Chiara Olson R.N. Medication Administered: KEFLEX [PO] (CEPHALEXIN), Dose: 500 mg Capsules PO. Medication Ordered: Keflex PO 500 mg (NOW). Given 15:00 09/02/2016 Chiara Olson R.N. Medication Administered: KCL [PO] (POTASSIUM CHLORIDE ER), Dose: 40 meq Tablets PO. Medication Ordered: KCl PO 40 meq (NOW).
== END 2016-09-02 15:26 | disposition home or self-care (01) ==
LOC: ED SRH 13:37
DX: K91.89 Other postprocedural complications and disorders of digestive system (principal); L02.211 Cutaneous abscess of abdominal wall; L03.311 Cellulitis of abdominal wall; E87.6 Hypokalemia; K21.9 Gastro-esophageal reflux disease without esophagitis; E11.9 Type 2 diabetes mellitus without complications; Z79.84 Long term (current) use of oral hypoglycemic drugs
CPT/HCPCS: 90065; 90100; 92031; 93004; 95059